=== PATIENT | male | born 1980 | race Two or more races ===

== ENCOUNTER 2021-07-25 23:17 | Inpatient (IN) | payer MEDICARE, MEDICAID ==
[~2021-07-25] VITALS: Ht 182.9 cm; Wt 93.2 kg
[2021-07-26 00:27] LABS: Hematocrit 22.5 % (41.0-53.0); Hemoglobin 7.5 g/dL (13.5-17.5); Lymphocytes # (auto) 0.6 10 ^3/uL (0.4-5.4); Monocytes % (auto) 11.8 % (0.0-12.0); Red Cell Distribution Width 15.5 % (11.8-14.3)
[2021-07-26 00:28] LABS: Basophils # (auto) 0 10 ^3/uL (0-0.2); Basophils % (auto) 0.5 % (0.0-2.0); Eosinophils # (auto) 0.2 10 ^3/uL (0-0.8); Eosinophils % (auto) 1.9 % (0.0-7.0); Lymphocytes % (auto) 7.2 % (10.0-50.0); Mean Corpuscular Hemoglobin 33.1 pg (28.0-32.0); Mean Corpuscular Hgb Conc. 33.1 g/dL (32.0-36.0); Mean Corpuscular Volume 99.9 fL (80.0-100.0); Monocytes # (auto) 0.9 10 ^3/uL (0-1.3); Neutrophils # (auto) 6.3 10 ^3/uL (1.6-8.6); Neutrophils % (auto) 78.6 % (37.0-80.0); Red Blood Cells 2.26 10^6/uL (4.5-5.90)
[2021-07-26 00:43] LABS: INR 1.22 (0.9-1.15)
[2021-07-26 00:44] LABS: BUN/Creatinine Ratio 6.2; Calcium 9.2 mg/dL (8.5-10.1); Magnesium 2.5 mg/dL (1.6-2.6); Potassium 5.1 mmol/L (3.5-5.1)
[2021-07-26 00:49] LABS: Bilirubin, Total 0.8 mg/dL (0.2-1.0); Total Protein 7.9 g/dL (6.4-8.2)
[2021-07-26] MEDS ORDERED: ONDANSETRON HCL 4 MG/2 ML VIAL IV ONE (02:00)
[2021-07-26] MEDS ORDERED: HYDROmorphone HCL 2 MG/ML VL IV ONE (02:00)
[2021-07-26] MEDS ORDERED: NALOXONE HCL 1MG/ML 2ML SYRINGE ONE ×2 (02:10→02:13)
[2021-07-26] MEDS ORDERED: NALOXONE HCL 0.4 MG/ML VIAL ONE ×2 (02:14→02:17)
[2021-07-26] MEDS ORDERED: NALOXONE HCL 1MG/ML 2ML SYRINGE IV ONE (02:15)
[2021-07-26] MEDS ORDERED: ONDANSETRON HCL 4 MG/2 ML VIAL ONE (02:35)
[2021-07-26] MEDS ORDERED: NALOXONE HCL 0.4 MG/ML VIAL IV ONE (03:15)
[2021-07-26] MEDS ORDERED: hydrALAZINE HCL 20 MG/ML VL IV ONE (11:15)
[2021-07-26] MEDS ORDERED: NITROGLYCERIN 0.4 MG SL TAB SL PRN (11:15)
[2021-07-26] MEDS ORDERED: MORPHINE SULFATE INJECTION 2 MG/ML SYRG IV PRN (11:15)
[2021-07-26] MEDS ORDERED: DEXTROSE (50%) 50ML SYRG IV PRN (11:45)
[2021-07-26] MEDS ORDERED: LACTULOSE 20Gm/30ML SOLN PO PRN (11:45)
[2021-07-26] MEDS ORDERED: ONDANSETRON HCL 4 MG/2 ML VIAL IV PRN (11:45)
[2021-07-26 11:53] LABS: Amylase 68 U/L (25-115); Lipase 161 U/L (73-393)
[2021-07-26 12:03] LABS: Hematocrit 22.1 % (41.0-53.0); Hemoglobin 7.5 g/dL (13.5-17.5)
[2021-07-26] MEDS: ONDANSETRON HCL 4 MG/2 ML VIAL IV PRN ×3 (13:09→17:23)
[2021-07-26] MEDS: NALBUPHINE HCL 10 MG/1ml INJECTION IV PRN ×2 (14:52→19:44)
[2021-07-26] MEDS: InsuLIN REG 1unit/0.01ml Soln (100units/ml) SC SCH ×2 (17:00→22:00)
[2021-07-26] MEDS: ACCU-CHEK COMFORT CURVE STRIP VI SCH ×2 (17:15→23:00)
[2021-07-26 19:59] LABS: Hemoglobin 7.6 g/dL (13.5-17.5)
[2021-07-26 20:02] LABS: Hematocrit 22.8 % (41.0-53.0)
[2021-07-26 22:00] VITALS: BP 139/84
[2021-07-26] MEDS: SUCRALFATE 1 GM/10 ML ORAL SUSP PO SCH (22:00)
[2021-07-26 22:54] VITALS: BP 139/84
[2021-07-26] MEDS: ATORVASTATIN 20 MG TAB PO SCH (22:59)
[2021-07-26] MEDS: CARVEDILOL 3.125 MG TAB PO SCH (23:00)
[2021-07-27] MEDS ORDERED: PANT40T PO (01:07)
[2021-07-27] MEDS ORDERED: ASPI-325 PO (01:07)
[2021-07-27] MEDS ORDERED: ALPR0.255 PO (01:07)
[2021-07-27] MEDS ORDERED: LOS25T PO (01:07)
[2021-07-27] MEDS ORDERED: LABE300T3 PO (01:07)
[2021-07-27] MEDS ORDERED: HYDR50TA15 PO (01:07)
[2021-07-27] MEDS ORDERED: SEVE800T8 PO (01:07)
[2021-07-27] MEDS ORDERED: CLON0.1T PO (01:07)
[2021-07-27] MEDS ORDERED: ATO40T PO (01:07)
[2021-07-27] MEDS ORDERED: NIFE1TAB30 PO (01:07)
[2021-07-27] MEDS ORDERED: CLOP75TA70 PO (01:07)
[2021-07-27 01:39] LABS: Hematocrit 21.8 % (41.0-53.0); Hemoglobin 7.4 g/dL (13.5-17.5)
[2021-07-27] MEDS: NALBUPHINE HCL 10 MG/1ml INJECTION IV PRN ×4 (01:39→19:53)
[2021-07-27] MEDS: ONDANSETRON HCL 4 MG/2 ML VIAL IV PRN ×4 (01:39→19:53)
[2021-07-27 05:00] VITALS: BP 120/76
[2021-07-27 05:05] LABS: Lymphocytes # (auto) 0.6 10 ^3/uL (0.4-5.4); Monocytes # (auto) 0.9 10 ^3/uL (0-1.3)
[2021-07-27 05:08] LABS: Basophils # (auto) 0.1 10 ^3/uL (0-0.2); Basophils % (auto) 0.6 % (0.0-2.0); Eosinophils # (auto) 0 10 ^3/uL (0-0.8); Eosinophils % (auto) 0.4 % (0.0-7.0); Hematocrit 23.4 % (41.0-53.0); Hemoglobin 7.8 g/dL (13.5-17.5); Lymphocytes % (auto) 5.9 % (10.0-50.0); Mean Corpuscular Hemoglobin 33.6 pg (28.0-32.0); Mean Corpuscular Hgb Conc. 33.4 g/dL (32.0-36.0); Mean Corpuscular Volume 100.8 fL (80.0-100.0); Monocytes % (auto) 9.4 % (0.0-12.0); Neutrophils # (auto) 8.5 10 ^3/uL (1.6-8.6); Neutrophils % (auto) 83.7 % (37.0-80.0); Red Blood Cells 2.32 10^6/uL (4.5-5.90); Red Cell Distribution Width 15.6 % (11.8-14.3); White Blood Cell 10.1 10^3/uL (4.4-10.8)
[2021-07-27 05:29] LABS: Albumin 2.9 g/dL (3.4-5.0); BUN/Creatinine Ratio 6.9; Calcium 9.4 mg/dL (8.5-10.1)
[2021-07-27 05:40] LABS: Bilirubin, Total 1.3 mg/dL (0.2-1.0); Total Protein 7.6 g/dL (6.4-8.2)
[2021-07-27 06:01] LABS: Potassium 6.5 mmol/L (3.5-5.1)
[2021-07-27] MEDS ORDERED: SODIUM ZIRCONIUM CYCL 10 GM PAK PO ONE (06:30)
[2021-07-27] MEDS ORDERED: SODIUM CHL 0.9% 1000 ML BAG XX ONE (07:00)
[2021-07-27] MEDS: InsuLIN REG 1unit/0.01ml Soln (100units/ml) SC SCH ×4 (07:00→22:00)
[2021-07-27] MEDS: traMADol HCL 50 MG TAB PO PRN (07:05)
[2021-07-27] MEDS: ACCU-CHEK COMFORT CURVE STRIP VI SCH ×4 (07:29→22:00)
[2021-07-27] MEDS: SUCRALFATE 1 GM/10 ML ORAL SUSP PO SCH ×4 (07:29→23:48)
[2021-07-27 09:00] VITALS: BP 159/103
[2021-07-27] MEDS: PANTOPRAZOLE 40 MG TAB PO SCH (09:37)
[2021-07-27] MEDS: ASPirin 81 mg TAB PO SCH (09:37)
[2021-07-27 13:00] VITALS: BP 156/96
[2021-07-27] MEDS: NITROGLYCERIN 0.2MG/HR TOPICAL PATCH TD SCH (15:30)
[2021-07-27] MEDS: CARVEDILOL 3.125 MG TAB PO SCH ×2 (15:30→23:48)
[2021-07-27] MEDS: FUROSEMIDE 40 MG/4 ML VIAL IV SCH (15:30)
[2021-07-27] MEDS: ENALAPRIL MALEATE 10 MG TAB PO SCH (15:30)
[2021-07-27] MEDS: Glucerna Carbsteady SHAKE Vanilla 8oz PO SCH (18:00)
[2021-07-27 19:03] LABS: Hematocrit 21.9 % (41.0-53.0); Hemoglobin 7.3 g/dL (13.5-17.5)
[2021-07-27 20:00] VITALS: BP 126/78
[2021-07-27] MEDS ORDERED: EPOETIN ALFA-EPBX 10,000 UNIT/1ML VIAL SC ONE (21:00)
[2021-07-27 21:54] VITALS: BP 130/64
[2021-07-27] MEDS: ATORVASTATIN 20 MG TAB PO SCH (23:50)
[2021-07-28] MEDS: ONDANSETRON HCL 4 MG/2 ML VIAL IV PRN ×5 (02:07→22:44)
[2021-07-28] MEDS: NALBUPHINE HCL 10 MG/1ml INJECTION IV PRN ×5 (03:07→22:43)
[2021-07-28 05:12] LABS: Basophils # (auto) 0.1 10 ^3/uL (0-0.2); Basophils % (auto) 0.5 % (0.0-2.0); Eosinophils # (auto) 0 10 ^3/uL (0-0.8); Eosinophils % (auto) 0.2 % (0.0-7.0); Hemoglobin 7.2 g/dL (13.5-17.5); Monocytes # (auto) 1.1 10 ^3/uL (0-1.3)
[2021-07-28 05:14] LABS: Hematocrit 21.8 % (41.0-53.0); Lymphocytes # (auto) 0.4 10 ^3/uL (0.4-5.4); Lymphocytes % (auto) 3.9 % (10.0-50.0); Mean Corpuscular Hemoglobin 33.7 pg (28.0-32.0); Mean Corpuscular Hgb Conc. 33.3 g/dL (32.0-36.0); Mean Corpuscular Volume 101.2 fL (80.0-100.0); Monocytes % (auto) 10.2 % (0.0-12.0); Neutrophils # (auto) 9.5 10 ^3/uL (1.6-8.6); Neutrophils % (auto) 85.2 % (37.0-80.0); Nucleated Red Blood Cells % 0.2 %; Red Blood Cells 2.15 10^6/uL (4.5-5.90); Red Cell Distribution Width 15.7 % (11.8-14.3); White Blood Cell 11.1 10^3/uL (4.4-10.8)
[2021-07-28 05:31] LABS: Albumin 2.7 g/dL (3.4-5.0); Calcium 9.3 mg/dL (8.5-10.1)
[2021-07-28 05:34] LABS: BUN/Creatinine Ratio 6.9
[2021-07-28 05:41] VITALS: BP 142/122
[2021-07-28] MEDS: InsuLIN REG 1unit/0.01ml Soln (100units/ml) SC SCH ×4 (05:45→21:40)
[2021-07-28 05:46] LABS: Bilirubin, Total 1.5 mg/dL (0.2-1.0); Total Protein 7.3 g/dL (6.4-8.2)
[2021-07-28] MEDS: ACCU-CHEK COMFORT CURVE STRIP VI SCH ×4 (05:46→21:40)
[2021-07-28 05:50] LABS: Potassium 5.8 mmol/L (3.5-5.1)
[2021-07-28] MEDS: SUCRALFATE 1 GM/10 ML ORAL SUSP PO SCH ×4 (05:50→21:39)
[2021-07-28] MEDS: Glucerna Carbsteady SHAKE Vanilla 8oz PO SCH ×3 (08:00→18:00)
[2021-07-28 09:00] VITALS: BP 168/98
[2021-07-28 09:55] LABS: Cholesterol 98 mg/dL (< 200); HDL Cholesterol 25 mg/dL (40-59); LDL Cholesterol 35 mg/dL (< 100); Triglycerides 183 mg/dL (< 150)
[2021-07-28] MEDS: FUROSEMIDE 40 MG/4 ML VIAL IV SCH (10:00)
[2021-07-28] MEDS: ENALAPRIL MALEATE 10 MG TAB PO SCH (10:00)
[2021-07-28] MEDS: ASPirin 81 mg TAB PO SCH (10:00)
[2021-07-28] MEDS: NITROGLYCERIN 0.2MG/HR TOPICAL PATCH TD SCH (10:00)
[2021-07-28] MEDS: PANTOPRAZOLE 40 MG TAB PO SCH (10:00)
[2021-07-28] MEDS ORDERED: SODIUM ZIRCONIUM CYCL 10 GM PAK PO ONE (11:15)
[2021-07-28 13:00] VITALS: BP 186/93
[2021-07-28] MEDS: CLOPIDOGREL BISULFATE 75 MG TAB PO SCH (13:45)
[2021-07-28] MEDS: CARVEDILOL 12.5 MG TAB PO SCH ×2 (13:45→21:39)
[2021-07-28] MEDS: NICOTINE 14 MG/24HR TOPICAL PATCH TD SCH (13:45)
[2021-07-28] MEDS ORDERED: CEFEPIME 1 GM in SODIUM CHL 0.9% 50 ML IV SCH (14:00)
[2021-07-28 14:06] LABS: Folate (Folic Acid) 17.47 ng/mL (5.38-24)
[2021-07-28 17:00] VITALS: BP 139/84
[2021-07-28 17:43] LABS: % Iron Saturation 85.7 % (20-55)
[2021-07-28 22:07] VITALS: BP 157/88
[2021-07-29] MEDS: ONDANSETRON HCL 4 MG/2 ML VIAL IV PRN ×4 (02:55→15:16)
[2021-07-29] MEDS: NALBUPHINE HCL 10 MG/1ml INJECTION IV PRN ×4 (02:55→15:16)
[2021-07-29 05:20] VITALS: BP 153/81
[2021-07-29 05:31] LABS: Basophils # (auto) 0 10 ^3/uL (0-0.2); Eosinophils # (auto) 0.1 10 ^3/uL (0-0.8); Hemoglobin 7.3 g/dL (13.5-17.5); Nucleated Red Blood Cells % 0.4 %; Red Cell Distribution Width 15.5 % (11.8-14.3); White Blood Cell 11.3 10^3/uL (4.4-10.8)
[2021-07-29 05:50] LABS: Basophils % (auto) 0.3 % (0.0-2.0); Eosinophils % (auto) 0.6 % (0.0-7.0); Hematocrit 22.1 % (41.0-53.0); Lymphocytes # (auto) 0.6 10 ^3/uL (0.4-5.4); Lymphocytes % (auto) 5.1 % (10.0-50.0); Mean Corpuscular Hemoglobin 33.2 pg (28.0-32.0); Mean Corpuscular Hgb Conc. 32.9 g/dL (32.0-36.0); Mean Corpuscular Volume 100.9 fL (80.0-100.0); Monocytes # (auto) 1.3 10 ^3/uL (0-1.3); Monocytes % (auto) 11.9 % (0.0-12.0); Neutrophils # (auto) 9.3 10 ^3/uL (1.6-8.6); Neutrophils % (auto) 82.1 % (37.0-80.0)
[2021-07-29 05:52] LABS: INR 1.52 (0.9-1.15); Partial Thromboplastin Time 32.5 sec (23.6-33.0)
[2021-07-29 06:09] LABS: Albumin 2.7 g/dL (3.4-5.0); BUN/Creatinine Ratio 7.1; Bilirubin, Total 1.2 mg/dL (0.2-1.0); Calcium 9.4 mg/dL (8.5-10.1)
[2021-07-29] MEDS: SUCRALFATE 1 GM/10 ML ORAL SUSP PO SCH ×4 (06:28→21:38)
[2021-07-29] MEDS: InsuLIN REG 1unit/0.01ml Soln (100units/ml) SC SCH ×4 (06:50→21:39)
[2021-07-29] MEDS: ACCU-CHEK COMFORT CURVE STRIP VI SCH ×4 (06:50→21:39)
[2021-07-29] MEDS ORDERED: SODIUM CHL 0.9% 1000 ML BAG XX ONE (07:00)
[2021-07-29] MEDS: Glucerna Carbsteady SHAKE Vanilla 8oz PO SCH ×3 (08:00→17:40)
[2021-07-29 09:00] VITALS: BP 149/84
[2021-07-29] MEDS: NICOTINE 14 MG/24HR TOPICAL PATCH TD SCH (10:00)
[2021-07-29] MEDS: ASPirin 81 mg TAB PO SCH (10:00)
[2021-07-29] MEDS: ENOXAPARIN SOD 30 MG/0.3 ML SYRINGE SC SCH (10:00)
[2021-07-29] MEDS: FUROSEMIDE 40 MG/4 ML VIAL IV SCH (10:00)
[2021-07-29] MEDS: PANTOPRAZOLE 40 MG TAB PO SCH (10:00)
[2021-07-29] MEDS: CARVEDILOL 12.5 MG TAB PO SCH ×2 (10:00→21:39)
[2021-07-29] MEDS: CLOPIDOGREL BISULFATE 75 MG TAB PO SCH (10:00)
[2021-07-29] MEDS: NITROGLYCERIN 0.2MG/HR TOPICAL PATCH TD SCH (10:00)
[2021-07-29] MEDS: hydrALAZINE HCL 20 MG/ML VL IV PRN (10:58)
[2021-07-29] MEDS: PIPERACILLIN-TAZOB 3.375GM 100 ML IV SCH ×2 (12:00→17:39)
[2021-07-29] MEDS ORDERED: MIDAZOLAM HCL 2MG/2ML 2ml VIAL (1mg/ml) ONE (12:32)
[2021-07-29] MEDS ORDERED: LIDOCAINE 2%HCL (LOCAL ANESTH.) INJ 20ML MDV ONE (12:32)
[2021-07-29] MEDS ORDERED: ANGIOMAX 250 MG VIAL IV ONE (12:32)
[2021-07-29] MEDS ORDERED: SODIUM CHL 0.9% 50 ML ONE (12:32)
[2021-07-29] MEDS ORDERED: fentaNYL CITRATE 100 MCG/2 ML VL ONE (12:32)
[2021-07-29] MEDS ORDERED: IODIXANOL 320MG/ML 100ML BTL IV ONE ×2 (12:33→13:15)
[2021-07-29] MEDS ORDERED: hydrALAZINE HCL 20 MG/ML VL ONE (13:06)
[2021-07-29 17:00] VITALS: BP 148/70
[2021-07-29] MEDS: PROMETHAZINE HCL 25 MG/ML 1ML IV PRN (18:34)
[2021-07-29] MEDS: MORPHINE SULFATE INJECTION 2 MG/ML SYRG IV PRN ×2 (18:34→22:27)
[2021-07-29] MEDS ORDERED: EPOETIN ALFA-EPBX 4,000 UNIT/ML VIAL SC ONE (21:00)
[2021-07-29 22:17] VITALS: BP 158/84
[2021-07-30] MEDS: PROMETHAZINE HCL 25 MG/ML 1ML IV PRN ×4 (00:35→22:03)
[2021-07-30] MEDS: PIPERACILLIN-TAZOB 3.375GM 100 ML IV SCH ×2 (00:35→06:16)
[2021-07-30] MEDS: MORPHINE SULFATE INJECTION 2 MG/ML SYRG IV PRN ×3 (03:44→20:28)
[2021-07-30 05:00] VITALS: BP 145/94
[2021-07-30] MEDS: SUCRALFATE 1 GM/10 ML ORAL SUSP PO SCH ×4 (06:16→21:22)
[2021-07-30] MEDS: InsuLIN REG 1unit/0.01ml Soln (100units/ml) SC SCH ×4 (06:17→21:22)
[2021-07-30] MEDS: ACCU-CHEK COMFORT CURVE STRIP VI SCH ×4 (06:17→21:22)
[2021-07-30] MEDS: Glucerna Carbsteady SHAKE Vanilla 8oz PO SCH ×3 (07:34→17:13)
[2021-07-30 09:00] VITALS: BP 151/72
[2021-07-30] MEDS: FUROSEMIDE 40 MG/4 ML VIAL IV SCH (09:07)
[2021-07-30] MEDS: PANTOPRAZOLE 40 MG TAB PO SCH ×2 (09:08→12:22)
[2021-07-30] MEDS: ASPirin 81 mg TAB PO SCH ×2 (09:08→12:22)
[2021-07-30] MEDS: CLOPIDOGREL BISULFATE 75 MG TAB PO SCH ×2 (09:08→12:23)
[2021-07-30] MEDS: ENALAPRIL MALEATE 10 MG TAB PO SCH ×2 (09:09→12:21)
[2021-07-30] MEDS: NITROGLYCERIN 0.2MG/HR TOPICAL PATCH TD SCH ×2 (09:09→12:21)
[2021-07-30] MEDS: ENOXAPARIN SOD 30 MG/0.3 ML SYRINGE SC SCH (09:09)
[2021-07-30] MEDS: NICOTINE 14 MG/24HR TOPICAL PATCH TD SCH (09:09)
[2021-07-30] MEDS: CARVEDILOL 12.5 MG TAB PO SCH ×3 (09:19→21:23)
[2021-07-30 10:42] LABS: % Iron Saturation 36.6 % (20-55)
[2021-07-30 11:22] LABS: Ferritin 101.9 ng/mL (10-322)
[2021-07-30 13:00] VITALS: BP 189/99
[2021-07-30] MEDS: PIPERACILLIN-TAZOB 2.25GM 50 ML IV SCH ×2 (13:18→21:22)
[2021-07-30] MEDS: hydrALAZINE HCL 20 MG/ML VL IV PRN (13:48)
[2021-07-30] MEDS ORDERED: ceFAZolin 1GM/50ML 100 ML IV ONE (16:18)
[2021-07-30] MEDS ORDERED: fentaNYL CITRATE 100 MCG/2 ML VL ONE (17:16)
[2021-07-30] MEDS ORDERED: PROPOFOL 10 MG/ML 20 ML IV ONE (17:16)
[2021-07-30] MEDS ORDERED: MIDAZOLAM HCL 2MG/2ML 2ml VIAL (1mg/ml) ONE ×2 (17:16→18:49)
[2021-07-30] MEDS ORDERED: ONDANSETRON HCL 4 MG/2 ML VIAL ONE (17:16)
[2021-07-30] MEDS ORDERED: SODIUM CHLORIDE LOCK 10 ML ONE (17:16)
[2021-07-30] MEDS ORDERED: ceFAZolin 1GM VL ONE (18:12)
[2021-07-30] MEDS ORDERED: BUPIVACAINE 0.25% INJ 50ML VIAL ONE (18:20)
[2021-07-30] MEDS ORDERED: METOCLOPRAMIDE HCL 5MG/ml INJ 2ml VIAL IV PRN (19:00)
[2021-07-30] MEDS ORDERED: HYDROmorphone HCL 2 MG/ML VL IV PRN (19:00)
[2021-07-30] MEDS ORDERED: MORPHINE SULFATE 4 MG/ML SYR/VIAL IV PRN (19:00)
[2021-07-30] MEDS ORDERED: ACCU-CHEK COMFORT CURVE STRIP VI ONE (19:00)
[2021-07-30 22:00] VITALS: BP 100/62
[2021-07-31] MEDS: MORPHINE SULFATE INJECTION 2 MG/ML SYRG IV PRN ×3 (03:11→20:09)
[2021-07-31 05:00] VITALS: BP 142/77
[2021-07-31 06:15] LABS: Basophils # (auto) 0.1 10 ^3/uL (0-0.2); Eosinophils % (auto) 1.4 % (0.0-7.0); Hemoglobin 7.5 g/dL (13.5-17.5); Lymphocytes # (auto) 0.8 10 ^3/uL (0.4-5.4); Monocytes # (auto) 1.5 10 ^3/uL (0-1.3)
[2021-07-31 06:18] LABS: Basophils % (auto) 0.8 % (0.0-2.0); Eosinophils # (auto) 0.1 10 ^3/uL (0-0.8); Hematocrit 22.1 % (41.0-53.0); Lymphocytes % (auto) 7.3 % (10.0-50.0); Mean Corpuscular Hemoglobin 34.4 pg (28.0-32.0); Mean Corpuscular Hgb Conc. 33.8 g/dL (32.0-36.0); Mean Corpuscular Volume 101.9 fL (80.0-100.0); Monocytes % (auto) 14.7 % (0.0-12.0); Neutrophils % (auto) 75.8 % (37.0-80.0); Nucleated Red Blood Cells % 0.5 %; Red Blood Cells 2.17 10^6/uL (4.5-5.90); Red Cell Distribution Width 15.4 % (11.8-14.3); White Blood Cell 10.5 10^3/uL (4.4-10.8)
[2021-07-31 06:29] LABS: Potassium 4.8 mmol/L (3.5-5.1)
[2021-07-31] MEDS: InsuLIN REG 1unit/0.01ml Soln (100units/ml) SC SCH ×4 (06:30→22:56)
[2021-07-31] MEDS: PIPERACILLIN-TAZOB 2.25GM 50 ML IV SCH ×3 (06:30→22:47)
[2021-07-31] MEDS: SUCRALFATE 1 GM/10 ML ORAL SUSP PO SCH ×4 (06:30→22:48)
[2021-07-31] MEDS: ACCU-CHEK COMFORT CURVE STRIP VI SCH ×4 (06:30→22:48)
[2021-07-31 06:47] LABS: BUN/Creatinine Ratio 6.8; Calcium 9.6 mg/dL (8.5-10.1)
[2021-07-31 09:30] VITALS: BP 128/79
[2021-07-31] MEDS: FUROSEMIDE 40 MG/4 ML VIAL IV SCH (09:44)
[2021-07-31] MEDS: CARVEDILOL 12.5 MG TAB PO SCH ×2 (09:45→22:48)
[2021-07-31] MEDS: ASPirin 81 mg TAB PO SCH (09:45)
[2021-07-31] MEDS: PANTOPRAZOLE 40 MG TAB PO SCH (09:46)
[2021-07-31] MEDS: CLOPIDOGREL BISULFATE 75 MG TAB PO SCH (09:46)
[2021-07-31] MEDS: ENALAPRIL MALEATE 10 MG TAB PO SCH (09:47)
[2021-07-31] MEDS: ENOXAPARIN SOD 30 MG/0.3 ML SYRINGE SC SCH (09:47)
[2021-07-31] MEDS: NITROGLYCERIN 0.2MG/HR TOPICAL PATCH TD SCH (09:48)
[2021-07-31] MEDS: Glucerna Carbsteady SHAKE Vanilla 8oz PO SCH ×3 (09:48→18:12)
[2021-07-31] MEDS: NICOTINE 14 MG/24HR TOPICAL PATCH TD SCH (09:49)
[2021-07-31] MEDS ORDERED: VANCOMYCIN PER PHARMACY 0 MG IV SCH (12:15)
[2021-07-31 12:53] VITALS: BP 155/82
[2021-07-31] MEDS: PROMETHAZINE HCL 25 MG/ML 1ML IV PRN ×2 (14:32→20:10)
[2021-07-31 16:43] VITALS: BP 167/95
[2021-07-31] MEDS ORDERED: VANCOMYCIN 1GM/250ML 250 ML IV ONE (17:00)
[2021-07-31] MEDS: hydrALAZINE HCL 20 MG/ML VL IV PRN (17:25)
[2021-07-31] MEDS ORDERED: LIDOCAINE 1% (LOCAL ANESTH.) PF 5ml SDV ID ONE (17:45)
[2021-07-31 22:00] VITALS: BP 127/87
[2021-07-31] MEDS: SODIUM CHLOR 0.9% PF (SALINE LOCK) 10ML VIAL/SYR IV SCH (22:39)
[2021-08-01] MEDS: PROMETHAZINE HCL 25 MG/ML 1ML IV PRN ×2 (02:01→14:51)
[2021-08-01] MEDS: MORPHINE SULFATE INJECTION 2 MG/ML SYRG IV PRN ×2 (02:01→14:45)
[2021-08-01 05:00] VITALS: BP 120/86
[2021-08-01] MEDS: PIPERACILLIN-TAZOB 2.25GM 50 ML IV SCH ×3 (06:19→22:46)
[2021-08-01] MEDS: SUCRALFATE 1 GM/10 ML ORAL SUSP PO SCH ×4 (06:19→22:46)
[2021-08-01] MEDS: ACCU-CHEK COMFORT CURVE STRIP VI SCH ×4 (06:19→22:47)
[2021-08-01] MEDS: InsuLIN REG 1unit/0.01ml Soln (100units/ml) SC SCH ×4 (06:19→22:47)
[2021-08-01] MEDS ORDERED: SODIUM CHL 0.9% 1000 ML BAG XX ONE (07:00)
[2021-08-01] MEDS: Glucerna Carbsteady SHAKE Vanilla 8oz PO SCH ×5 (08:00→18:00)
[2021-08-01 09:00] VITALS: BP 152/53
[2021-08-01] MEDS: SODIUM CHLOR 0.9% PF (SALINE LOCK) 10ML VIAL/SYR IV SCH ×2 (10:00→22:02)
[2021-08-01] MEDS: PANTOPRAZOLE 40 MG TAB PO SCH (11:30)
[2021-08-01] MEDS: NICOTINE 14 MG/24HR TOPICAL PATCH TD SCH (11:30)
[2021-08-01] MEDS: FUROSEMIDE 40 MG/4 ML VIAL IV SCH (11:30)
[2021-08-01] MEDS: ENOXAPARIN SOD 30 MG/0.3 ML SYRINGE SC SCH (11:30)
[2021-08-01] MEDS: CLOPIDOGREL BISULFATE 75 MG TAB PO SCH (11:30)
[2021-08-01] MEDS: CARVEDILOL 12.5 MG TAB PO SCH ×2 (11:30→22:47)
[2021-08-01] MEDS: NITROGLYCERIN 0.2MG/HR TOPICAL PATCH TD SCH (11:30)
[2021-08-01] MEDS: ENALAPRIL MALEATE 10 MG TAB PO SCH (11:30)
[2021-08-01] MEDS: ASPirin 81 mg TAB PO SCH (11:30)
[2021-08-01] MEDS: traMADol HCL 50 MG TAB PO PRN (12:45)
[2021-08-01 13:00] VITALS: BP 144/113
[2021-08-01 16:48] VITALS: BP 140/38
[2021-08-01] MEDS ORDERED: EPOETIN ALFA-EPBX 4,000 UNIT/ML VIAL SC ONE (21:00)
[2021-08-01] MEDS ORDERED: VANCOMYCIN 500 MG in D5W 5% 100 ML IV ONE (21:00)
[2021-08-01 22:12] VITALS: BP 177/58
[2021-08-02] MEDS: PROMETHAZINE HCL 25 MG/ML 1ML IV PRN ×2 (05:00→21:37)
[2021-08-02] MEDS: MORPHINE SULFATE INJECTION 2 MG/ML SYRG IV PRN ×2 (05:01→21:37)
[2021-08-02 05:08] VITALS: BP 146/108
[2021-08-02 05:35] LABS: Basophils # (auto) 0.1 10 ^3/uL (0-0.2); Basophils % (auto) 1.3 % (0.0-2.0); Eosinophils # (auto) 0.4 10 ^3/uL (0-0.8); Eosinophils % (auto) 4.9 % (0.0-7.0); Hematocrit 21.9 % (41.0-53.0); Hemoglobin 7.3 g/dL (13.5-17.5); Lymphocytes # (auto) 0.6 10 ^3/uL (0.4-5.4); Lymphocytes % (auto) 8.1 % (10.0-50.0); Mean Corpuscular Hemoglobin 34.6 pg (28.0-32.0); Mean Corpuscular Hgb Conc. 33.5 g/dL (32.0-36.0); Mean Corpuscular Volume 103.3 fL (80.0-100.0); Monocytes # (auto) 0.8 10 ^3/uL (0-1.3); Monocytes % (auto) 10.7 % (0.0-12.0); Neutrophils # (auto) 5.8 10 ^3/uL (1.6-8.6); Nucleated Red Blood Cells % 0.2 %; Red Blood Cells 2.12 10^6/uL (4.5-5.90); White Blood Cell 7.7 10^3/uL (4.4-10.8)
[2021-08-02 05:56] LABS: Albumin 2.4 g/dL (3.4-5.0); BUN/Creatinine Ratio 6.7; Bilirubin, Total 0.8 mg/dL (0.2-1.0); Calcium 9.7 mg/dL (8.5-10.1); Total Protein 7.2 g/dL (6.4-8.2)
[2021-08-02] MEDS: PIPERACILLIN-TAZOB 2.25GM 50 ML IV SCH ×3 (06:14→21:36)
[2021-08-02] MEDS: InsuLIN REG 1unit/0.01ml Soln (100units/ml) SC SCH ×4 (06:14→21:59)
[2021-08-02] MEDS: ACCU-CHEK COMFORT CURVE STRIP VI SCH ×4 (06:14→21:36)
[2021-08-02] MEDS: SUCRALFATE 1 GM/10 ML ORAL SUSP PO SCH ×4 (06:14→21:35)
[2021-08-02] MEDS: Glucerna Carbsteady SHAKE Vanilla 8oz PO SCH ×6 (08:00→18:00)
[2021-08-02 09:00] VITALS: BP 130/57
[2021-08-02] MEDS: NICOTINE 14 MG/24HR TOPICAL PATCH TD SCH (10:00)
[2021-08-02] MEDS: SODIUM CHLOR 0.9% PF (SALINE LOCK) 10ML VIAL/SYR IV SCH ×2 (10:00→21:35)
[2021-08-02 13:00] VITALS: BP 166/68
[2021-08-02] MEDS: FUROSEMIDE 40 MG/4 ML VIAL IV SCH (14:00)
[2021-08-02] MEDS: ASPirin 81 mg TAB PO SCH (15:00)
[2021-08-02] MEDS: NITROGLYCERIN 0.2MG/HR TOPICAL PATCH TD SCH (15:00)
[2021-08-02] MEDS: PANTOPRAZOLE 40 MG TAB PO SCH (15:00)
[2021-08-02] MEDS: ENALAPRIL MALEATE 10 MG TAB PO SCH (15:00)
[2021-08-02] MEDS: CARVEDILOL 12.5 MG TAB PO SCH ×2 (15:00→21:36)
[2021-08-02] MEDS: ENOXAPARIN SOD 30 MG/0.3 ML SYRINGE SC SCH (15:00)
[2021-08-02] MEDS: CLOPIDOGREL BISULFATE 75 MG TAB PO SCH (15:00)
[2021-08-02 17:00] VITALS: BP 157/75
[2021-08-02] MEDS: DICYCLOMINE HCL 10 MG CAP PO PRN (19:15)
[2021-08-02 22:00] VITALS: BP 160/43
[2021-08-03] VITALS (12 sets, daily range): BP systolic 109–186; BP diastolic 32–79
[2021-08-03] MEDS: MORPHINE SULFATE INJECTION 2 MG/ML SYRG IV PRN ×4 (02:07→19:37)
[2021-08-03 05:38] LABS: INR 1.24 (0.9-1.15); Partial Thromboplastin Time 32.4 sec (23.6-33.0)
[2021-08-03 05:40] LABS: Basophils # (auto) 0.1 10 ^3/uL (0-0.2); Basophils % (auto) 0.8 % (0.0-2.0); Hematocrit 19.7 % (41.0-53.0); Lymphocytes # (auto) 0.9 10 ^3/uL (0.4-5.4); Monocytes # (auto) 1.2 10 ^3/uL (0-1.3); Neutrophils # (auto) 6.2 10 ^3/uL (1.6-8.6); Nucleated Red Blood Cells % 0.2 %; White Blood Cell 8.8 10^3/uL (4.4-10.8)
[2021-08-03 05:44] LABS: Eosinophils # (auto) 0.5 10 ^3/uL (0-0.8); Eosinophils % (auto) 5.4 % (0.0-7.0); Lymphocytes % (auto) 9.8 % (10.0-50.0); Mean Corpuscular Hemoglobin 35.2 pg (28.0-32.0); Mean Corpuscular Volume 103.4 fL (80.0-100.0); Monocytes % (auto) 13.3 % (0.0-12.0); Neutrophils % (auto) 70.7 % (37.0-80.0); Red Cell Distribution Width 16.3 % (11.8-14.3)
[2021-08-03 05:51] LABS: Calcium 9.5 mg/dL (8.5-10.1); Potassium 4.4 mmol/L (3.5-5.1)
[2021-08-03] MEDS: PIPERACILLIN-TAZOB 2.25GM 50 ML IV SCH ×3 (05:51→21:21)
[2021-08-03] MEDS: ACCU-CHEK COMFORT CURVE STRIP VI SCH ×4 (05:52→21:26)
[2021-08-03] MEDS: SUCRALFATE 1 GM/10 ML ORAL SUSP PO SCH ×4 (05:52→21:31)
[2021-08-03] MEDS: InsuLIN REG 1unit/0.01ml Soln (100units/ml) SC SCH ×4 (05:52→21:26)
[2021-08-03 05:55] LABS: BUN/Creatinine Ratio 6.8
[2021-08-03 06:02] LABS: Hemoglobin 6.7 g/dL (13.5-17.5)
[2021-08-03] MEDS: Glucerna Carbsteady SHAKE Vanilla 8oz PO SCH ×4 (07:58→17:43)
[2021-08-03] MEDS ORDERED: LIDOCAINE 2%HCL (LOCAL ANESTH.) INJ 20ML MDV ONE (08:35)
[2021-08-03] MEDS ORDERED: SODIUM CHL 0.9% 50 ML ONE (09:13)
[2021-08-03] MEDS ORDERED: MIDAZOLAM HCL 2MG/2ML 2ml VIAL (1mg/ml) ONE (09:13)
[2021-08-03] MEDS ORDERED: ANGIOMAX 250 MG VIAL IV ONE (09:13)
[2021-08-03] MEDS ORDERED: fentaNYL CITRATE 100 MCG/2 ML VL ONE (09:13)
[2021-08-03] MEDS ORDERED: HYDROmorphone HCL 2 MG/ML VL ONE (09:35)
[2021-08-03] MEDS: ENOXAPARIN SOD 30 MG/0.3 ML SYRINGE SC SCH (10:00)
[2021-08-03] MEDS: PANTOPRAZOLE 40 MG TAB PO SCH (10:00)
[2021-08-03] MEDS: NICOTINE 14 MG/24HR TOPICAL PATCH TD SCH (10:00)
[2021-08-03] MEDS: CARVEDILOL 12.5 MG TAB PO SCH ×2 (10:00→21:31)
[2021-08-03] MEDS: CLOPIDOGREL BISULFATE 75 MG TAB PO SCH (10:00)
[2021-08-03] MEDS: FUROSEMIDE 40 MG/4 ML VIAL IV SCH (10:00)
[2021-08-03] MEDS: NITROGLYCERIN 0.2MG/HR TOPICAL PATCH TD SCH (10:00)
[2021-08-03] MEDS: ASPirin 81 mg TAB PO SCH (10:00)
[2021-08-03] MEDS: ENALAPRIL MALEATE 10 MG TAB PO SCH (10:00)
[2021-08-03] MEDS ORDERED: IODIXANOL 320MG/ML 100ML BTL IV ONE ×2 (10:08)
[2021-08-03] MEDS ORDERED: hydrALAZINE HCL 20 MG/ML VL ONE (10:43)
[2021-08-03] MEDS ORDERED: CLOPIDOGREL BISULFATE 75 MG TAB ONE (10:48)
[2021-08-03] MEDS ORDERED: ASPirin 81 mg TAB ONE (10:49)
[2021-08-03] MEDS: SODIUM CHLOR 0.9% PF (SALINE LOCK) 10ML VIAL/SYR IV SCH ×2 (14:00→21:26)
[2021-08-03] MEDS: DICYCLOMINE HCL 10 MG CAP PO PRN (15:49)
[2021-08-03] MEDS: DIPHENOXYLATE W/ATROPINE 2.5 MG TAB PO PRN (15:49)
[2021-08-03] MEDS: PROMETHAZINE HCL 25 MG/ML 1ML IV PRN ×2 (17:43→19:37)
[2021-08-03] MEDS ORDERED: VANCOMYCIN 1GM/250ML 250 ML IV SCH (18:00)
[2021-08-04] MEDS: MORPHINE SULFATE INJECTION 2 MG/ML SYRG IV PRN ×6 (00:14→22:34)
[2021-08-04] MEDS: DIPHENOXYLATE W/ATROPINE 2.5 MG TAB PO PRN ×2 (00:14→08:01)
[2021-08-04] MEDS: PROMETHAZINE HCL 25 MG/ML 1ML IV PRN ×3 (04:23→21:24)
[2021-08-04 05:00] VITALS: BP 139/81
[2021-08-04] MEDS: PIPERACILLIN-TAZOB 2.25GM 50 ML IV SCH ×3 (06:00→22:32)
[2021-08-04 06:12] LABS: Basophils # (auto) 0.1 10 ^3/uL (0-0.2); Eosinophils # (auto) 0.5 10 ^3/uL (0-0.8); Lymphocytes # (auto) 0.9 10 ^3/uL (0.4-5.4); Monocytes # (auto) 1.1 10 ^3/uL (0-1.3); Nucleated Red Blood Cells % 0.1 %
[2021-08-04 06:14] LABS: Basophils % (auto) 0.7 % (0.0-2.0); Eosinophils % (auto) 6.1 % (0.0-7.0); Hematocrit 22.2 % (41.0-53.0); Hemoglobin 7.8 g/dL (13.5-17.5); Lymphocytes % (auto) 10.3 % (10.0-50.0); Mean Corpuscular Hemoglobin 34.6 pg (28.0-32.0); Mean Corpuscular Volume 98.8 fL (80.0-100.0); Monocytes % (auto) 12.8 % (0.0-12.0); Neutrophils # (auto) 5.9 10 ^3/uL (1.6-8.6); Neutrophils % (auto) 70.1 % (37.0-80.0); Red Blood Cells 2.25 10^6/uL (4.5-5.90); Red Cell Distribution Width 16.3 % (11.8-14.3); White Blood Cell 8.4 10^3/uL (4.4-10.8)
[2021-08-04] MEDS: SODIUM CHLOR 0.9% PF (SALINE LOCK) 10ML VIAL/SYR IV SCH ×3 (06:27→22:33)
[2021-08-04] MEDS: ACCU-CHEK COMFORT CURVE STRIP VI SCH ×4 (06:28→21:25)
[2021-08-04] MEDS: SUCRALFATE 1 GM/10 ML ORAL SUSP PO SCH ×4 (06:28→22:33)
[2021-08-04] MEDS: InsuLIN REG 1unit/0.01ml Soln (100units/ml) SC SCH ×4 (06:49→21:24)
[2021-08-04] MEDS ORDERED: SODIUM CHL 0.9% 1000 ML BAG XX ONE (07:00)
[2021-08-04] MEDS: Glucerna Carbsteady SHAKE Vanilla 8oz PO SCH ×3 (08:37→17:57)
[2021-08-04 09:00] VITALS: BP 165/50
[2021-08-04] MEDS: NICOTINE 14 MG/24HR TOPICAL PATCH TD SCH (10:00)
[2021-08-04] MEDS: CLOPIDOGREL BISULFATE 75 MG TAB PO SCH (12:05)
[2021-08-04] MEDS: CARVEDILOL 12.5 MG TAB PO SCH ×2 (12:07→22:33)
[2021-08-04] MEDS: ASPirin 81 mg TAB PO SCH (12:08)
[2021-08-04] MEDS: PANTOPRAZOLE 40 MG TAB PO SCH (12:09)
[2021-08-04] MEDS: ENALAPRIL MALEATE 10 MG TAB PO SCH (12:09)
[2021-08-04] MEDS: ENOXAPARIN SOD 30 MG/0.3 ML SYRINGE SC SCH (12:09)
[2021-08-04] MEDS: FUROSEMIDE 40 MG/4 ML VIAL IV SCH (12:10)
[2021-08-04] MEDS: NITROGLYCERIN 0.2MG/HR TOPICAL PATCH TD SCH (12:11)
[2021-08-04 13:00] VITALS: BP 188/52
[2021-08-04] MEDS ORDERED: VANCOMYCIN 1GM/250ML 250 ML IV ONE (16:00)
[2021-08-04 16:31] VITALS: BP 190/76
[2021-08-04] MEDS: hydrALAZINE HCL 20 MG/ML VL IV PRN (16:51)
[2021-08-04 17:53] VITALS: BP 145/53
[2021-08-04] MEDS ORDERED: EPOETIN ALFA-EPBX 10,000 UNIT/1ML VIAL SC ONE (21:00)
[2021-08-04 22:00] VITALS: BP 128/113
[2021-08-05] MEDS: MORPHINE SULFATE INJECTION 2 MG/ML SYRG IV PRN ×2 (04:29→10:49)
[2021-08-05] MEDS: PROMETHAZINE HCL 25 MG/ML 1ML IV PRN (04:29)
[2021-08-05] MEDS: DIPHENOXYLATE W/ATROPINE 2.5 MG TAB PO PRN ×2 (04:30→10:49)
[2021-08-05] MEDS: SODIUM CHLOR 0.9% PF (SALINE LOCK) 10ML VIAL/SYR IV SCH ×2 (06:34→13:08)
[2021-08-05] MEDS: PIPERACILLIN-TAZOB 2.25GM 50 ML IV SCH ×2 (06:34→13:08)
[2021-08-05] MEDS: SUCRALFATE 1 GM/10 ML ORAL SUSP PO SCH ×2 (06:34→11:53)
[2021-08-05] MEDS: InsuLIN REG 1unit/0.01ml Soln (100units/ml) SC SCH ×2 (06:35→11:56)
[2021-08-05] MEDS: ACCU-CHEK COMFORT CURVE STRIP VI SCH ×2 (06:35→11:53)
[2021-08-05] MEDS: Glucerna Carbsteady SHAKE Vanilla 8oz PO SCH ×2 (08:00→12:17)
[2021-08-05 09:00] VITALS: BP 152/71
[2021-08-05] MEDS: FUROSEMIDE 40 MG/4 ML VIAL IV SCH (10:08)
[2021-08-05] MEDS: ASPirin 81 mg TAB PO SCH (10:10)
[2021-08-05] MEDS: CARVEDILOL 12.5 MG TAB PO SCH (10:12)
[2021-08-05] MEDS: CLOPIDOGREL BISULFATE 75 MG TAB PO SCH (10:13)
[2021-08-05] MEDS: PANTOPRAZOLE 40 MG TAB PO SCH (10:14)
[2021-08-05] MEDS: ENALAPRIL MALEATE 10 MG TAB PO SCH (10:15)
[2021-08-05] MEDS: ENOXAPARIN SOD 30 MG/0.3 ML SYRINGE SC SCH (10:16)
[2021-08-05] MEDS: NITROGLYCERIN 0.2MG/HR TOPICAL PATCH TD SCH (10:26)
[2021-08-05 13:00] VITALS: BP 130/40
[2021-08-06 13:16] LABS: Hepatitis A Ab IgM Negative
[2021-08-06 13:30] LABS: Hepatitis B Surface Antigen Negative (Negative)
[2021-08-06 13:40] LABS: Hepatitis B Core IgM Negative
[2021-08-06 13:59] LABS: Hepatitis C Antibody Negative (Negative)
== END 2021-08-05 17:15 | DRG 246 ==
LOC: EDUNIT# 23:17 → EDBD 23:17 → ER 23:17 → TELE 07-26 11:14 → TELE-WESTW 07-26 20:39
PROVIDERS: ADMIT Internal Medicine; ATTEND Internal Medicine
PROC: 5A1D70Z Performance of Urinary Filtration, Intermittent, Less than 6 Hours Per Day (ICD-10-PCS; principal; 2021-07-27)
PROC: 4A023N7 Measurement of Cardiac Sampling and Pressure, Left Heart, Percutaneous Approach (ICD-10-PCS; 2021-07-29)
PROC: B211YZZ Fluoroscopy of Multiple Coronary Arteries using Other Contrast (ICD-10-PCS; 2021-07-29)
PROC: B215YZZ Fluoroscopy of Left Heart using Other Contrast (ICD-10-PCS; 2021-07-29)
PROC: B41FYZZ Fluoroscopy of Right Lower Extremity Arteries using Other Contrast (ICD-10-PCS; 2021-07-29)
PROC: 5A1D70Z Performance of Urinary Filtration, Intermittent, Less than 6 Hours Per Day (ICD-10-PCS; 2021-07-30)
PROC: 0QBN0ZZ Excision of Right Metatarsal, Open Approach (ICD-10-PCS; 2021-07-30)
PROC: 5A1D70Z Performance of Urinary Filtration, Intermittent, Less than 6 Hours Per Day (ICD-10-PCS; 2021-08-01)
PROC: 30233N1 Transfusion of Nonautologous Red Blood Cells into Peripheral Vein, Percutaneous Approach (ICD-10-PCS; 2021-08-03)
PROC: 027034Z Dilation of Coronary Artery, One Artery with Drug-eluting Intraluminal Device, Percutaneous Approach (ICD-10-PCS; 2021-08-03)
PROC: 5A1D70Z Performance of Urinary Filtration, Intermittent, Less than 6 Hours Per Day (ICD-10-PCS; 2021-08-04)
DX: I21.4 Non-ST elevation (NSTEMI) myocardial infarction (principal); I50.23 Acute on chronic systolic (congestive) heart failure; J81.0 Acute pulmonary edema; N18.6 End stage renal disease; T82.855A Stenosis of coronary artery stent, initial encounter; M86.171 Other acute osteomyelitis, right ankle and foot; E44.0 Moderate protein-calorie malnutrition; D68.9 Coagulation defect, unspecified; E87.1 Hypo-osmolality and hyponatremia; I13.2 Hypertensive heart and chronic kidney disease with heart failure and with stage 5 chronic kidney disease, or end stage renal disease; L03.115 Cellulitis of right lower limb; E11.621 Type 2 diabetes mellitus with foot ulcer; E11.69 Type 2 diabetes mellitus with other specified complication; I25.10 Atherosclerotic heart disease of native coronary artery without angina pectoris; E11.21 Type 2 diabetes mellitus with diabetic nephropathy; D63.1 Anemia in chronic kidney disease; E83.39 Other disorders of phosphorus metabolism; E88.09 Other disorders of plasma-protein metabolism, not elsewhere classified; I16.0 Hypertensive urgency; E87.5 Hyperkalemia; E78.5 Hyperlipidemia, unspecified; Z20.822 Contact with and (suspected) exposure to COVID-19; Y83.8 Other surgical procedures as the cause of abnormal reaction of the patient, or of later complication, without mention of misadventure at the time of the procedure; B95.62 Methicillin resistant Staphylococcus aureus infection as the cause of diseases classified elsewhere; E11.22 Type 2 diabetes mellitus with diabetic chronic kidney disease; E11.51 Type 2 diabetes mellitus with diabetic peripheral angiopathy without gangrene; F17.210 Nicotine dependence, cigarettes, uncomplicated; E11.40 Type 2 diabetes mellitus with diabetic neuropathy, unspecified; G89.29 Other chronic pain; H40.9 Unspecified glaucoma; K08.89 Other specified disorders of teeth and supporting structures; K76.89 Other specified diseases of liver; L97.519 Non-pressure chronic ulcer of other part of right foot with unspecified severity; Z99.2 Dependence on renal dialysis; Z89.512 Acquired absence of left leg below knee; Z68.26 Body mass index [BMI] 26.0-26.9, adult; Y92.89 Other specified places as the place of occurrence of the external cause; Z90.49 Acquired absence of other specified parts of digestive tract; Z80.0 Family history of malignant neoplasm of digestive organs; Z82.49 Family history of ischemic heart disease and other diseases of the circulatory system; Z83.3 Family history of diabetes mellitus; Z88.8 Allergy status to other drugs, medicaments and biological substances
CPT/HCPCS: 36415; 36569; 71045; 73718; 74176; 75710; 80048; 80053; 80061; 80074; 80202; 82150; 82550; 82607; 82668; 82728; 82746; 82962; 83036; 83540; 83550; 83605; 83615; 83690; 83735; 83880; 84155; 84165; 84443; 84484; 85014; 85018; 85025; 85045; 85610; 85652; 85730; 86141; 86850; 86880; 86900; 86901; 86920; 87045; 87070; 87075; 87076; 87077; 87081; 87186; 87205; 87426; 87427; 90935; 92928; 93005; 93306; 93458; 93925; 96374; 96375; 99152; 99153; C1769; C1874; C1887; G0378; J0690; J1642; J1815; J2250; J2405; J2543; J2704; J3490; J7060; Q9967

== ENCOUNTER 2021-09-13 07:04 | Inpatient (IN) | payer MEDICARE, MEDICAID ==
[~2021-09-13] VITALS: Ht 182.9 cm; Wt 81.0 kg
[~2021-09-13 07:04] MED LIST: ALPR0.255 PO; ASPI-325 PO; ATO40T PO; CLON0.1T PO; CLOP75TA70 PO; HYDR50TA15 PO; LABE300T3 PO; LOS25T PO; NIFE1TAB30 PO; PANT40T PO; SEVE800T8 PO
[2021-09-13 08:44] LABS: Basophils # (auto) 0.1 10 ^3/uL (0-0.2); Eosinophils # (auto) 0.1 10 ^3/uL (0-0.8); Red Blood Cells 1.99 10^6/uL (4.5-5.90); White Blood Cell 10.5 10^3/uL (4.4-10.8)
[2021-09-13 08:46] LABS: Basophils % (auto) 1.1 % (0.0-2.0); Eosinophils % (auto) 0.8 % (0.0-7.0); Hematocrit 18.3 % (41.0-53.0); Lymphocytes # (auto) 0.8 10 ^3/uL (0.4-5.4); Lymphocytes % (auto) 7.5 % (10.0-50.0); Mean Corpuscular Hemoglobin 31.4 pg (28.0-32.0); Mean Corpuscular Volume 92.2 fL (80.0-100.0); Monocytes # (auto) 1.4 10 ^3/uL (0-1.3); Monocytes % (auto) 13.2 % (0.0-12.0); Neutrophils # (auto) 8.1 10 ^3/uL (1.6-8.6); Neutrophils % (auto) 77.4 % (37.0-80.0); Red Cell Distribution Width 18.6 % (11.8-14.3)
[2021-09-13 08:52] LABS: Hemoglobin 6.3 g/dL (13.5-17.5)
[2021-09-13 09:06] LABS: Albumin 1.7 g/dL (3.4-5.0); Calcium 9.5 mg/dL (8.5-10.1); Potassium 5.3 mmol/L (3.5-5.1)
[2021-09-13 09:10] LABS: Bilirubin, Total 1.4 mg/dL (0.2-1.0)
[2021-09-13] MEDS ORDERED: MORPHINE SULFATE INJECTION 2 MG/ML SYRG IV PRN ×3 (10:00→15:15)
[2021-09-13] MEDS ORDERED: NITROGLYCERIN 0.4 MG SL TAB SL PRN ×2 (10:00→15:15)
[2021-09-13] MEDS ORDERED: DESMOPRESSIN INJECTION 20 MCG in SODIUM CHL 0.9% 50 ML IV ONE (12:45)
[2021-09-13] MEDS ORDERED: ONDANSETRON HCL 4 MG/2 ML VIAL IV PRN ×2 (14:30→15:15)
[2021-09-13] MEDS ORDERED: LABETALOL HCL 5 MG/ML 4ML SYRINGE IV PRN (15:15)
[2021-09-13] MEDS ORDERED: PIPERACILLIN-TAZOB 2.25GM 50 ML IV ONE (15:15)
[2021-09-13] MEDS ORDERED: ALUM & MAG HYDROX-SIMETH LIQ(MAALOX) 30 ML PO PRN (15:15)
[2021-09-13] MEDS ORDERED: HYDROcodone-ACET 5/325MG TAB PO PRN (15:15)
[2021-09-13] MEDS ORDERED: DOCUSATE SOD 100 MG CAP PO PRN (15:15)
[2021-09-13] MEDS ORDERED: VANCOMYCIN PER PHARMACY 0 MG IV SCH (15:15)
[2021-09-13] MEDS ORDERED: VANCOMYCIN 1GM/250ML 250 ML IV ONE (15:45)
[2021-09-13] MEDS: SEVELAMER 800 MG TAB PO SCH (19:12)
[2021-09-13 20:49] VITALS: BP 123/30
[2021-09-13] MEDS: ACETAMINOPHEN 325 MG TAB PO PRN (21:00)
[2021-09-13 21:15] VITALS: BP 117/21
[2021-09-13 22:00] VITALS: BP 128/86
[2021-09-13] MEDS ORDERED: ATORVASTATIN 20 MG TAB PO SCH (22:00)
[2021-09-13] MEDS: NIFEdipine ER 30 MG TAB PO SCH (23:46)
[2021-09-13] MEDS: SACUBITRIL-VALSARTAN 24mg/26mg TAB PO SCH (23:46)
[2021-09-13] MEDS: PANTOPRAZOLE 40 MG TAB PO SCH (23:46)
[2021-09-13] MEDS: PIPERACILLIN-TAZOB 2.25GM 50 ML IV SCH (23:47)
[2021-09-13] MEDS: FUROSEMIDE 40 MG/4 ML VIAL IV SCH (23:47)
[2021-09-13] MEDS: hydrALAZINE HCL 25 MG TAB PO SCH (23:47)
[2021-09-14] VITALS (11 sets, daily range): BP systolic 112–160; BP diastolic 52–85
[2021-09-14] MEDS: MORPHINE SULFATE INJECTION 2 MG/ML SYRG IV PRN ×5 (00:14→21:43)
[2021-09-14] MEDS: FUROSEMIDE 40 MG/4 ML VIAL IV SCH ×2 (06:00→18:07)
[2021-09-14] MEDS: hydrALAZINE HCL 25 MG TAB PO SCH ×3 (06:00→21:43)
[2021-09-14 07:04] LABS: Basophils # (auto) 0.1 10 ^3/uL (0-0.2); Basophils % (auto) 0.6 % (0.0-2.0); Eosinophils # (auto) 0.1 10 ^3/uL (0-0.8); Hematocrit 25.1 % (41.0-53.0); Hemoglobin 8.5 g/dL (13.5-17.5); Lymphocytes # (auto) 0.8 10 ^3/uL (0.4-5.4); Lymphocytes % (auto) 7.5 % (10.0-50.0); Mean Corpuscular Hemoglobin 30.9 pg (28.0-32.0); Mean Corpuscular Hgb Conc. 33.9 g/dL (32.0-36.0); Mean Corpuscular Volume 91.2 fL (80.0-100.0); Monocytes # (auto) 1.2 10 ^3/uL (0-1.3); Monocytes % (auto) 11.2 % (0.0-12.0); Neutrophils # (auto) 8.8 10 ^3/uL (1.6-8.6); Neutrophils % (auto) 79.7 % (37.0-80.0); Nucleated Red Blood Cells % 0.2 %; Red Blood Cells 2.75 10^6/uL (4.5-5.90); Red Cell Distribution Width 17.7 % (11.8-14.3); White Blood Cell 11.1 10^3/uL (4.4-10.8)
[2021-09-14 07:19] LABS: INR 1.49 (0.9-1.15); Partial Thromboplastin Time 42.9 sec (23.6-33.0)
[2021-09-14 07:24] LABS: % Iron Saturation 12.5 % (20-55); Albumin 1.6 g/dL (3.4-5.0); Calcium 9.4 mg/dL (8.5-10.1); Magnesium 2.3 mg/dL (1.6-2.6); Potassium 5.4 mmol/L (3.5-5.1)
[2021-09-14 07:33] LABS: BUN/Creatinine Ratio 5.9; Bilirubin, Total 1.5 mg/dL (0.2-1.0); Phosphorus 6.7 mg/dL (2.5-4.90)
[2021-09-14] MEDS: SEVELAMER 800 MG TAB PO SCH ×3 (08:00→18:07)
[2021-09-14] MEDS: SACUBITRIL-VALSARTAN 24mg/26mg TAB PO SCH ×2 (11:34→21:42)
[2021-09-14] MEDS: PANTOPRAZOLE 40 MG TAB PO SCH ×2 (11:34→21:31)
[2021-09-14] MEDS: CLOPIDOGREL BISULFATE 75 MG TAB PO SCH (11:34)
[2021-09-14] MEDS: ASPirin 81 mg TAB PO SCH (11:35)
[2021-09-14] MEDS: NIFEdipine ER 30 MG TAB PO SCH ×2 (11:35→21:43)
[2021-09-14] MEDS: PIPERACILLIN-TAZOB 2.25GM 50 ML IV SCH ×2 (11:37→21:31)
[2021-09-14] MEDS ORDERED: EPOETIN ALFA-EPBX 10,000 UNIT/1ML VIAL SC ONE (21:00)
[2021-09-14] MEDS: ATORVASTATIN 20 MG TAB PO SCH (21:31)
[2021-09-15] MEDS: MORPHINE SULFATE INJECTION 2 MG/ML SYRG IV PRN ×3 (02:20→20:38)
[2021-09-15] MEDS: FUROSEMIDE 40 MG/4 ML VIAL IV SCH ×2 (05:50→17:34)
[2021-09-15] MEDS: hydrALAZINE HCL 25 MG TAB PO SCH ×3 (05:50→21:29)
[2021-09-15 05:52] VITALS: BP 122/56
[2021-09-15 06:36] LABS: INR 1.51 (0.9-1.15); Partial Thromboplastin Time 43.1 sec (23.6-33.0)
[2021-09-15 06:53] LABS: Albumin 1.5 g/dL (3.4-5.0); BUN/Creatinine Ratio 5.4; Bilirubin, Total 1.2 mg/dL (0.2-1.0); Calcium 9.4 mg/dL (8.5-10.1)
[2021-09-15] MEDS: SEVELAMER 800 MG TAB PO SCH ×3 (07:57→17:55)
[2021-09-15] MEDS: ASPirin 81 mg TAB PO SCH (09:28)
[2021-09-15] MEDS: PIPERACILLIN-TAZOB 2.25GM 50 ML IV SCH ×2 (09:28→21:29)
[2021-09-15] MEDS: SACUBITRIL-VALSARTAN 24mg/26mg TAB PO SCH ×2 (09:28→21:29)
[2021-09-15] MEDS: CLOPIDOGREL BISULFATE 75 MG TAB PO SCH (09:28)
[2021-09-15] MEDS: PANTOPRAZOLE 40 MG TAB PO SCH ×2 (09:29→21:30)
[2021-09-15] MEDS: NIFEdipine ER 30 MG TAB PO SCH ×2 (09:29→21:30)
[2021-09-15 09:30] VITALS: BP 89/35
[2021-09-15 10:13] LABS: Basophils # (auto) 0.1 10 ^3/uL (0-0.2); Basophils % (auto) 0.6 % (0.0-2.0); Eosinophils # (auto) 0.1 10 ^3/uL (0-0.8); Eosinophils % (auto) 1.3 % (0.0-7.0); Hematocrit 26.4 % (41.0-53.0); Hemoglobin 8.9 g/dL (13.5-17.5); Lymphocytes # (auto) 0.7 10 ^3/uL (0.4-5.4); Lymphocytes % (auto) 7.4 % (10.0-50.0); Mean Corpuscular Hemoglobin 30.8 pg (28.0-32.0); Mean Corpuscular Hgb Conc. 33.7 g/dL (32.0-36.0); Mean Corpuscular Volume 91.5 fL (80.0-100.0); Monocytes # (auto) 0.9 10 ^3/uL (0-1.3); Monocytes % (auto) 9.2 % (0.0-12.0); Neutrophils # (auto) 8.2 10 ^3/uL (1.6-8.6); Neutrophils % (auto) 81.5 % (37.0-80.0); Red Blood Cells 2.88 10^6/uL (4.5-5.90); Red Cell Distribution Width 17.7 % (11.8-14.3); White Blood Cell 10.1 10^3/uL (4.4-10.8)
[2021-09-15] MEDS ORDERED: PIPERACILLIN-TAZOB 0.75 GM in D5W 5% 50 ML IV SCH (11:45)
[2021-09-15] MEDS ORDERED: IODIXANOL 320MG/ML 100ML BTL IV ONE (12:33)
[2021-09-15] MEDS ORDERED: MIDAZOLAM HCL 2MG/2ML 2ml VIAL (1mg/ml) ONE (12:40)
[2021-09-15] MEDS ORDERED: fentaNYL CITRATE 100 MCG/2 ML VL ONE (12:40)
[2021-09-15 13:06] VITALS: BP 102/48
[2021-09-15] MEDS ORDERED: diphenhdrAMINE HCL 50 MG/1 ML VL ONE (13:47)
[2021-09-15] MEDS ORDERED: HEPARIN SODIUM (PORCINE) 5000 UNITS/ML 1ML VIAL ONE (14:28)
[2021-09-15 16:41] VITALS: BP 92/57
[2021-09-15] MEDS: ATORVASTATIN 20 MG TAB PO SCH (21:29)
[2021-09-15] MEDS: ACETAMINOPHEN 325 MG TAB PO PRN (21:30)
[2021-09-15 21:44] VITALS: BP 151/87
[2021-09-16] MEDS: MORPHINE SULFATE INJECTION 2 MG/ML SYRG IV PRN ×3 (03:24→18:06)
[2021-09-16 04:43] VITALS: BP 147/72
[2021-09-16] MEDS: hydrALAZINE HCL 25 MG TAB PO SCH ×3 (06:00→22:34)
[2021-09-16] MEDS: FUROSEMIDE 40 MG/4 ML VIAL IV SCH ×2 (06:00→17:25)
[2021-09-16] MEDS ORDERED: SODIUM CHL 0.9% 1000 ML BAG XX ONE (07:00)
[2021-09-16] MEDS: SEVELAMER 800 MG TAB PO SCH ×3 (08:00→17:25)
[2021-09-16 08:23] VITALS: BP 144/70
[2021-09-16] MEDS: CLOPIDOGREL BISULFATE 75 MG TAB PO SCH (08:47)
[2021-09-16] MEDS: PANTOPRAZOLE 40 MG TAB PO SCH ×2 (08:47→22:35)
[2021-09-16] MEDS: ASPirin 81 mg TAB PO SCH (08:49)
[2021-09-16] MEDS: PIPERACILLIN-TAZOB 2.25GM 50 ML IV SCH ×2 (08:49→22:34)
[2021-09-16] MEDS: NIFEdipine ER 30 MG TAB PO SCH ×2 (09:54→22:35)
[2021-09-16] MEDS: SACUBITRIL-VALSARTAN 24mg/26mg TAB PO SCH ×2 (09:54→22:34)
[2021-09-16 10:28] LABS: BUN/Creatinine Ratio 5.7; Calcium 9.4 mg/dL (8.5-10.1); Potassium 5.2 mmol/L (3.5-5.1)
[2021-09-16 11:32] VITALS: BP 118/88
[2021-09-16] MEDS ORDERED: PIPERACILLIN-TAZOB 0.75 GM in D5W 5% 50 ML IV ONE (16:00)
[2021-09-16 16:05] VITALS: BP 125/60
[2021-09-16 16:21] VITALS: BP 125/60
[2021-09-16] MEDS: ACETAMINOPHEN 325 MG TAB PO PRN (21:19)
[2021-09-16 22:00] VITALS: BP 141/54
[2021-09-16] MEDS: ATORVASTATIN 20 MG TAB PO SCH (22:34)
[2021-09-17] MEDS: MORPHINE SULFATE INJECTION 2 MG/ML SYRG IV PRN ×5 (00:31→20:00)
[2021-09-17 05:20] VITALS: BP 143/61
[2021-09-17] MEDS: FUROSEMIDE 40 MG/4 ML VIAL IV SCH ×2 (06:13→17:44)
[2021-09-17] MEDS: hydrALAZINE HCL 25 MG TAB PO SCH ×3 (06:14→22:02)
[2021-09-17] MEDS: SEVELAMER 800 MG TAB PO SCH ×3 (08:00→17:44)
[2021-09-17 09:08] VITALS: BP 98/50
[2021-09-17] MEDS: PIPERACILLIN-TAZOB 2.25GM 50 ML IV SCH ×2 (09:18→22:02)
[2021-09-17] MEDS: PANTOPRAZOLE 40 MG TAB PO SCH ×2 (09:18→22:04)
[2021-09-17] MEDS: CLOPIDOGREL BISULFATE 75 MG TAB PO SCH (09:18)
[2021-09-17] MEDS: ASPirin 81 mg TAB PO SCH (09:18)
[2021-09-17] MEDS: SACUBITRIL-VALSARTAN 24mg/26mg TAB PO SCH ×2 (09:18→22:02)
[2021-09-17] MEDS: NIFEdipine ER 30 MG TAB PO SCH ×2 (10:00→22:03)
[2021-09-17 13:15] VITALS: BP 149/77
[2021-09-17 16:41] VITALS: BP 145/73
[2021-09-17 22:00] VITALS: BP 149/71
[2021-09-17] MEDS: ATORVASTATIN 20 MG TAB PO SCH (22:03)
[2021-09-18] MEDS: MORPHINE SULFATE INJECTION 2 MG/ML SYRG IV PRN ×5 (00:13→18:27)
[2021-09-18] MEDS: LORazepam 0.5 MG TAB PO PRN ×2 (02:08→21:38)
[2021-09-18 05:00] VITALS: BP 136/58
[2021-09-18] MEDS: FUROSEMIDE 40 MG/4 ML VIAL IV SCH ×2 (05:46→17:04)
[2021-09-18] MEDS: ACETAMINOPHEN 325 MG TAB PO PRN (05:46)
[2021-09-18] MEDS: hydrALAZINE HCL 25 MG TAB PO SCH ×3 (05:47→21:34)
[2021-09-18 06:13] LABS: Basophils # (auto) 0.1 10 ^3/uL (0-0.2); Basophils % (auto) 0.8 % (0.0-2.0); Eosinophils # (auto) 0.1 10 ^3/uL (0-0.8); Eosinophils % (auto) 1.1 % (0.0-7.0); Hematocrit 26.3 % (41.0-53.0); Hemoglobin 8.8 g/dL (13.5-17.5); Lymphocytes # (auto) 0.7 10 ^3/uL (0.4-5.4); Lymphocytes % (auto) 6.1 % (10.0-50.0); Mean Corpuscular Hemoglobin 30.2 pg (28.0-32.0); Mean Corpuscular Hgb Conc. 33.5 g/dL (32.0-36.0); Mean Corpuscular Volume 90.2 fL (80.0-100.0); Monocytes # (auto) 0.7 10 ^3/uL (0-1.3); Monocytes % (auto) 6.3 % (0.0-12.0); Neutrophils # (auto) 9.4 10 ^3/uL (1.6-8.6); Neutrophils % (auto) 85.7 % (37.0-80.0); Red Blood Cells 2.92 10^6/uL (4.5-5.90); Red Cell Distribution Width 17.5 % (11.8-14.3)
[2021-09-18 06:25] LABS: Calcium 9.7 mg/dL (8.5-10.1)
[2021-09-18 06:28] LABS: BUN/Creatinine Ratio 5.6
[2021-09-18] MEDS ORDERED: SODIUM CHL 0.9% 1000 ML BAG XX ONE (07:00)
[2021-09-18] MEDS: SEVELAMER 800 MG TAB PO SCH ×3 (08:00→17:04)
[2021-09-18] MEDS: cefTRIAXone 1GM/50ML D5W 50 ML IV SCH (09:00)
[2021-09-18 09:02] VITALS: BP 124/57
[2021-09-18] MEDS: CLOPIDOGREL BISULFATE 75 MG TAB PO SCH (10:00)
[2021-09-18] MEDS: PANTOPRAZOLE 40 MG TAB PO SCH ×2 (10:00→21:36)
[2021-09-18] MEDS: SACUBITRIL-VALSARTAN 24mg/26mg TAB PO SCH ×2 (10:00→21:36)
[2021-09-18] MEDS: ASPirin 81 mg TAB PO SCH (10:00)
[2021-09-18] MEDS: NIFEdipine ER 30 MG TAB PO SCH ×2 (10:00→21:37)
[2021-09-18 12:43] VITALS: BP 156/57
[2021-09-18 16:17] VITALS: BP 120/61
[2021-09-18] MEDS ORDERED: VANCOMYCIN 500 MG in D5W 5% 100 ML IV ONE (17:00)
[2021-09-18 20:00] VITALS: BP 156/76
[2021-09-18] MEDS ORDERED: EPOETIN ALFA-EPBX 10,000 UNIT/1ML VIAL SC ONE (21:00)
[2021-09-18] MEDS: ATORVASTATIN 20 MG TAB PO SCH (21:35)
[2021-09-18 22:23] VITALS: BP 149/69
[2021-09-19] MEDS: MORPHINE SULFATE INJECTION 2 MG/ML SYRG IV PRN ×5 (04:59→21:45)
[2021-09-19 05:00] VITALS: BP 105/62
[2021-09-19] MEDS: FUROSEMIDE 40 MG/4 ML VIAL IV SCH ×2 (06:42→17:46)
[2021-09-19] MEDS: hydrALAZINE HCL 25 MG TAB PO SCH ×3 (06:43→21:42)
[2021-09-19] MEDS: SEVELAMER 800 MG TAB PO SCH ×3 (08:00→17:45)
[2021-09-19 09:00] VITALS: BP 99/70
[2021-09-19] MEDS: ASPirin 81 mg TAB PO SCH (09:19)
[2021-09-19] MEDS: SACUBITRIL-VALSARTAN 24mg/26mg TAB PO SCH ×2 (09:19→21:42)
[2021-09-19] MEDS: CLOPIDOGREL BISULFATE 75 MG TAB PO SCH (09:19)
[2021-09-19] MEDS: NIFEdipine ER 30 MG TAB PO SCH ×2 (09:19→21:43)
[2021-09-19] MEDS: cefTRIAXone 1GM/50ML D5W 50 ML IV SCH (09:19)
[2021-09-19] MEDS: PANTOPRAZOLE 40 MG TAB PO SCH ×2 (09:19→21:42)
[2021-09-19 12:40] VITALS: BP 88/59
[2021-09-19 17:00] VITALS: BP 105/81
[2021-09-19] MEDS: ATORVASTATIN 20 MG TAB PO SCH (21:42)
[2021-09-19 22:00] VITALS: BP 118/54
[2021-09-20] MEDS: MORPHINE SULFATE INJECTION 2 MG/ML SYRG IV PRN ×2 (02:40→15:29)
[2021-09-20 05:00] VITALS: BP 97/67
[2021-09-20] MEDS: hydrALAZINE HCL 25 MG TAB PO SCH ×3 (06:48→22:00)
[2021-09-20] MEDS: FUROSEMIDE 40 MG/4 ML VIAL IV SCH ×2 (06:49→17:54)
[2021-09-20 07:02] LABS: Basophils # (auto) 0.1 10 ^3/uL (0-0.2); Basophils % (auto) 0.8 % (0.0-2.0); Eosinophils # (auto) 0.3 10 ^3/uL (0-0.8); Eosinophils % (auto) 2.6 % (0.0-7.0); Hemoglobin 9.2 g/dL (13.5-17.5); Lymphocytes # (auto) 0.8 10 ^3/uL (0.4-5.4); Lymphocytes % (auto) 6.7 % (10.0-50.0); Mean Corpuscular Hemoglobin 30.8 pg (28.0-32.0); Mean Corpuscular Volume 90.4 fL (80.0-100.0); Monocytes # (auto) 0.6 10 ^3/uL (0-1.3); Neutrophils # (auto) 10.6 10 ^3/uL (1.6-8.6); Neutrophils % (auto) 84.9 % (37.0-80.0); Nucleated Red Blood Cells % 0.1 %; Red Blood Cells 2.99 10^6/uL (4.5-5.90); Red Cell Distribution Width 17.5 % (11.8-14.3); White Blood Cell 12.4 10^3/uL (4.4-10.8)
[2021-09-20 07:24] LABS: Potassium 5.1 mmol/L (3.5-5.1)
[2021-09-20 07:28] LABS: INR 1.56 (0.9-1.15); Partial Thromboplastin Time 47.3 sec (23.6-33.0)
[2021-09-20 07:29] LABS: Albumin 1.4 g/dL (3.4-5.0); BUN/Creatinine Ratio 5.8; Calcium 8.9 mg/dL (8.5-10.1); Magnesium 2.3 mg/dL (1.6-2.6)
[2021-09-20 07:32] LABS: Phosphorus 7.4 mg/dL (2.5-4.90); Total Protein 6.8 g/dL (6.4-8.2)
[2021-09-20 08:00] VITALS: BP 99/50
[2021-09-20] MEDS: SEVELAMER 800 MG TAB PO SCH ×3 (08:00→17:54)
[2021-09-20] MEDS: PANTOPRAZOLE 40 MG TAB PO SCH ×2 (09:29→21:44)
[2021-09-20] MEDS: SACUBITRIL-VALSARTAN 24mg/26mg TAB PO SCH ×2 (09:29→21:44)
[2021-09-20] MEDS: cefTRIAXone 1GM/50ML D5W 50 ML IV SCH (09:29)
[2021-09-20] MEDS: CLOPIDOGREL BISULFATE 75 MG TAB PO SCH (09:29)
[2021-09-20] MEDS: ASPirin 81 mg TAB PO SCH (09:29)
[2021-09-20] MEDS: NIFEdipine ER 30 MG TAB PO SCH ×2 (09:30→22:00)
[2021-09-20 13:00] VITALS: BP 129/34
[2021-09-20 17:00] VITALS: BP 127/66
[2021-09-20] MEDS: ATORVASTATIN 20 MG TAB PO SCH (21:44)
[2021-09-20 22:00] VITALS: BP 109/44
[2021-09-21] MEDS: MORPHINE SULFATE INJECTION 2 MG/ML SYRG IV PRN ×3 (04:57→20:43)
[2021-09-21] MEDS: hydrALAZINE HCL 25 MG TAB PO SCH ×3 (05:05→22:00)
[2021-09-21] MEDS: FUROSEMIDE 40 MG/4 ML VIAL IV SCH ×2 (05:05→18:29)
[2021-09-21 05:19] VITALS: BP 125/71
[2021-09-21] MEDS ORDERED: SODIUM CHL 0.9% 1000 ML BAG XX ONE (07:00)
[2021-09-21 07:13] LABS: Hematocrit 31.3 % (41.0-53.0); Hemoglobin 10.1 g/dL (13.5-17.5); Mean Corpuscular Hemoglobin 29.4 pg (28.0-32.0); Mean Corpuscular Hgb Conc. 32.4 g/dL (32.0-36.0); Mean Corpuscular Volume 90.9 fL (80.0-100.0); Red Blood Cells 3.45 10^6/uL (4.5-5.90); Red Cell Distribution Width 17.5 % (11.8-14.3)
[2021-09-21 07:21] LABS: Basophils % (manual) 0 (0.0-2.0); Blast Cells 0; Eosinophils % (manual) 0 (0-7); Metamyelocytes % 0; Monocytes % (manual) 0 (0-12); Myelocytes % 0; Promyelocytes % 0; Reactive Lymphocytes 0
[2021-09-21 07:28] LABS: INR 1.55 (0.9-1.15); Partial Thromboplastin Time 39.6 sec (23.6-33.0)
[2021-09-21] MEDS: SEVELAMER 800 MG TAB PO SCH ×3 (08:00→18:29)
[2021-09-21 09:00] VITALS: BP 117/65
[2021-09-21 09:35] LABS: Band Neutrophils % (manual) 16; Lymphocytes % (manual) 2 (10.0-50.0)
[2021-09-21] MEDS: SACUBITRIL-VALSARTAN 24mg/26mg TAB PO SCH ×2 (10:00→22:06)
[2021-09-21] MEDS: NIFEdipine ER 30 MG TAB PO SCH ×2 (10:00→22:00)
[2021-09-21 11:27] LABS: Hematocrit 31.3 % (41.0-53.0); Hemoglobin 10.2 g/dL (13.5-17.5); Mean Corpuscular Hemoglobin 29.6 pg (28.0-32.0); Mean Corpuscular Hgb Conc. 32.8 g/dL (32.0-36.0); Mean Corpuscular Volume 90.5 fL (80.0-100.0); Red Blood Cells 3.46 10^6/uL (4.5-5.90); Red Cell Distribution Width 17.5 % (11.8-14.3); White Blood Cell 21.3 10^3/uL (4.4-10.8)
[2021-09-21 11:28] LABS: Basophils % (manual) 0 (0.0-2.0); Blast Cells 0; Eosinophils % (manual) 0 (0-7); Metamyelocytes % 0; Monocytes % (manual) 0 (0-12); Myelocytes % 0; Promyelocytes % 0; Reactive Lymphocytes 0
[2021-09-21 12:09] LABS: Band Neutrophils % (manual) 4; Lymphocytes % (manual) 4 (10.0-50.0)
[2021-09-21 12:19] LABS: Albumin 1.3 g/dL (3.4-5.0); Calcium 8.7 mg/dL (8.5-10.1); Magnesium 2.5 mg/dL (1.6-2.6); Potassium 4.7 mmol/L (3.5-5.1)
[2021-09-21 12:26] LABS: Phosphorus 7.9 mg/dL (2.5-4.90); Total Protein 7.2 g/dL (6.4-8.2)
[2021-09-21] MEDS: cefTRIAXone 1GM/50ML D5W 50 ML IV SCH (12:30)
[2021-09-21] MEDS: CLOPIDOGREL BISULFATE 75 MG TAB PO SCH (12:30)
[2021-09-21] MEDS: ASPirin 81 mg TAB PO SCH (12:30)
[2021-09-21] MEDS: PANTOPRAZOLE 40 MG TAB PO SCH ×2 (12:31→22:06)
[2021-09-21 13:00] VITALS: BP 150/71
[2021-09-21 17:00] VITALS: BP 139/65
[2021-09-21] MEDS ORDERED: EPOETIN ALFA-EPBX 10,000 UNIT/1ML VIAL SC ONE (21:00)
[2021-09-21 22:00] VITALS: BP 126/49
[2021-09-21] MEDS: ATORVASTATIN 20 MG TAB PO SCH (22:06)
[2021-09-22 05:00] VITALS: BP 138/65
[2021-09-22] MEDS: hydrALAZINE HCL 25 MG TAB PO SCH ×3 (06:13→22:00)
[2021-09-22] MEDS: FUROSEMIDE 40 MG/4 ML VIAL IV SCH ×2 (06:13→18:07)
[2021-09-22 06:44] LABS: Basophils # (auto) 0.2 10 ^3/uL (0-0.2); Basophils % (auto) 1.2 % (0.0-2.0); Eosinophils # (auto) 0.3 10 ^3/uL (0-0.8); Eosinophils % (auto) 1.9 % (0.0-7.0); Hematocrit 32.5 % (41.0-53.0); Hemoglobin 10.7 g/dL (13.5-17.5); Lymphocytes # (auto) 0.6 10 ^3/uL (0.4-5.4); Lymphocytes % (auto) 4.4 % (10.0-50.0); Mean Corpuscular Hemoglobin 29.8 pg (28.0-32.0); Mean Corpuscular Volume 90.3 fL (80.0-100.0); Monocytes # (auto) 0.8 10 ^3/uL (0-1.3); Monocytes % (auto) 5.2 % (0.0-12.0); Neutrophils # (auto) 12.9 10 ^3/uL (1.6-8.6); Neutrophils % (auto) 87.3 % (37.0-80.0); Nucleated Red Blood Cells % 0.1 %; Red Blood Cells 3.61 10^6/uL (4.5-5.90); Red Cell Distribution Width 17.6 % (11.8-14.3); White Blood Cell 14.8 10^3/uL (4.4-10.8)
[2021-09-22 07:05] LABS: BUN/Creatinine Ratio 5.5; Calcium 8.5 mg/dL (8.5-10.1)
[2021-09-22] MEDS: SEVELAMER 800 MG TAB PO SCH ×3 (08:00→18:07)
[2021-09-22 08:30] VITALS: BP 150/88
[2021-09-22] MEDS: PANTOPRAZOLE 40 MG TAB PO SCH ×2 (10:35→21:14)
[2021-09-22] MEDS: CLOPIDOGREL BISULFATE 75 MG TAB PO SCH (10:35)
[2021-09-22] MEDS: cefTRIAXone 1GM/50ML D5W 50 ML IV SCH (10:35)
[2021-09-22] MEDS: ASPirin 81 mg TAB PO SCH (10:36)
[2021-09-22] MEDS: NIFEdipine ER 30 MG TAB PO SCH ×2 (10:36→22:00)
[2021-09-22] MEDS: SACUBITRIL-VALSARTAN 24mg/26mg TAB PO SCH ×2 (10:36→21:13)
[2021-09-22] MEDS: MORPHINE SULFATE INJECTION 2 MG/ML SYRG IV PRN ×2 (11:00→21:15)
[2021-09-22 12:30] VITALS: BP 142/87
[2021-09-22 16:22] VITALS: BP 160/79
[2021-09-22] MEDS: ATORVASTATIN 20 MG TAB PO SCH (21:14)
[2021-09-22 22:00] VITALS: BP 125/55
[2021-09-23 05:00] VITALS: BP 110/75
[2021-09-23] MEDS: FUROSEMIDE 40 MG/4 ML VIAL IV SCH ×2 (05:31→18:00)
[2021-09-23] MEDS: hydrALAZINE HCL 25 MG TAB PO SCH ×3 (05:32→21:15)
[2021-09-23] MEDS: MORPHINE SULFATE INJECTION 2 MG/ML SYRG IV PRN ×2 (05:48→18:51)
[2021-09-23] MEDS ORDERED: SODIUM CHL 0.9% 1000 ML BAG XX ONE (07:00)
[2021-09-23 07:31] LABS: Basophils # (auto) 0.1 10 ^3/uL (0-0.2); Basophils % (auto) 0.5 % (0.0-2.0); Eosinophils # (auto) 0.1 10 ^3/uL (0-0.8); Eosinophils % (auto) 0.6 % (0.0-7.0); Hematocrit 29.3 % (41.0-53.0); Hemoglobin 9.7 g/dL (13.5-17.5); Lymphocytes # (auto) 0.7 10 ^3/uL (0.4-5.4); Lymphocytes % (auto) 4.9 % (10.0-50.0); Mean Corpuscular Hemoglobin 29.8 pg (28.0-32.0); Mean Corpuscular Hgb Conc. 33.3 g/dL (32.0-36.0); Mean Corpuscular Volume 89.5 fL (80.0-100.0); Monocytes # (auto) 0.8 10 ^3/uL (0-1.3); Monocytes % (auto) 5.7 % (0.0-12.0); Neutrophils # (auto) 13.1 10 ^3/uL (1.6-8.6); Neutrophils % (auto) 88.3 % (37.0-80.0); Nucleated Red Blood Cells % 0.1 %; Red Blood Cells 3.27 10^6/uL (4.5-5.90); Red Cell Distribution Width 17.6 % (11.8-14.3); White Blood Cell 14.9 10^3/uL (4.4-10.8)
[2021-09-23 09:00] VITALS: BP 136/62
[2021-09-23] MEDS: SEVELAMER 800 MG TAB PO SCH ×3 (09:13→18:00)
[2021-09-23] MEDS: cefTRIAXone 1GM/50ML D5W 50 ML IV SCH (09:13)
[2021-09-23] MEDS: PANTOPRAZOLE 40 MG TAB PO SCH ×2 (09:16→21:08)
[2021-09-23] MEDS: CLOPIDOGREL BISULFATE 75 MG TAB PO SCH (09:16)
[2021-09-23] MEDS: ASPirin 81 mg TAB PO SCH (09:16)
[2021-09-23] MEDS: SACUBITRIL-VALSARTAN 24mg/26mg TAB PO SCH ×2 (09:17→21:07)
[2021-09-23] MEDS: NIFEdipine ER 30 MG TAB PO SCH ×2 (09:17→21:16)
[2021-09-23 13:00] VITALS: BP 134/64
[2021-09-23 17:00] VITALS: BP 165/76
[2021-09-23] MEDS: Pro-Stat SF 30ml Vanilla PO SCH (18:00)
[2021-09-23] MEDS ORDERED: EPOETIN ALFA-EPBX 4,000 UNIT/ML VIAL SC ONE (21:00)
[2021-09-23] MEDS: ATORVASTATIN 20 MG TAB PO SCH (21:08)
[2021-09-23 21:18] VITALS: BP 129/46
[2021-09-24] MEDS: MORPHINE SULFATE INJECTION 2 MG/ML SYRG IV PRN ×3 (04:13→20:37)
[2021-09-24 05:00] VITALS: BP 164/84
[2021-09-24] MEDS: hydrALAZINE HCL 25 MG TAB PO SCH ×3 (05:04→21:56)
[2021-09-24] MEDS: FUROSEMIDE 40 MG/4 ML VIAL IV SCH ×2 (05:04→18:01)
[2021-09-24 07:22] LABS: Basophils # (auto) 0.1 10 ^3/uL (0-0.2); Basophils % (auto) 0.6 % (0.0-2.0); Eosinophils # (auto) 0.2 10 ^3/uL (0-0.8); Eosinophils % (auto) 1.3 % (0.0-7.0); Hematocrit 30.6 % (41.0-53.0); Hemoglobin 10.1 g/dL (13.5-17.5); Lymphocytes # (auto) 0.7 10 ^3/uL (0.4-5.4); Lymphocytes % (auto) 4.4 % (10.0-50.0); Mean Corpuscular Hemoglobin 29.8 pg (28.0-32.0); Mean Corpuscular Hgb Conc. 33.1 g/dL (32.0-36.0); Mean Corpuscular Volume 90.2 fL (80.0-100.0); Monocytes % (auto) 6.1 % (0.0-12.0); Neutrophils % (auto) 87.6 % (37.0-80.0); Red Cell Distribution Width 17.2 % (11.8-14.3); White Blood Cell 15.9 10^3/uL (4.4-10.8)
[2021-09-24] MEDS: cefTRIAXone 1GM/50ML D5W 50 ML IV SCH (08:35)
[2021-09-24] MEDS: ASPirin 81 mg TAB PO SCH (08:35)
[2021-09-24] MEDS: PANTOPRAZOLE 40 MG TAB PO SCH ×2 (08:35→21:51)
[2021-09-24] MEDS: SEVELAMER 800 MG TAB PO SCH ×3 (08:35→18:02)
[2021-09-24] MEDS: SACUBITRIL-VALSARTAN 24mg/26mg TAB PO SCH ×2 (08:36→21:55)
[2021-09-24] MEDS: CLOPIDOGREL BISULFATE 75 MG TAB PO SCH (08:36)
[2021-09-24] MEDS: NIFEdipine ER 30 MG TAB PO SCH ×2 (08:36→21:55)
[2021-09-24] MEDS: Pro-Stat SF 30ml Vanilla PO SCH ×2 (08:37→18:01)
[2021-09-24 09:00] VITALS: BP 148/65
[2021-09-24 12:00] VITALS: BP 156/56
[2021-09-24] MEDS ORDERED: VANCOMYCIN 1GM/250ML 250 ML IV ONE (14:00)
[2021-09-24 17:00] VITALS: BP 152/79
[2021-09-24] MEDS: ATORVASTATIN 20 MG TAB PO SCH (21:52)
[2021-09-24 21:53] VITALS: BP 124/60
[2021-09-25 05:00] VITALS: BP 119/57
[2021-09-25] MEDS: hydrALAZINE HCL 25 MG TAB PO SCH ×2 (05:36→13:51)
[2021-09-25] MEDS: FUROSEMIDE 40 MG/4 ML VIAL IV SCH (05:36)
[2021-09-25 06:51] LABS: Basophils # (auto) 0.1 10 ^3/uL (0-0.2); Basophils % (auto) 0.5 % (0.0-2.0); Eosinophils # (auto) 0.2 10 ^3/uL (0-0.8); Eosinophils % (auto) 1.1 % (0.0-7.0); Hematocrit 26.9 % (41.0-53.0); Hemoglobin 8.9 g/dL (13.5-17.5); Lymphocytes # (auto) 0.7 10 ^3/uL (0.4-5.4); Lymphocytes % (auto) 5.2 % (10.0-50.0); Mean Corpuscular Hemoglobin 30.2 pg (28.0-32.0); Mean Corpuscular Volume 91.5 fL (80.0-100.0); Monocytes # (auto) 0.7 10 ^3/uL (0-1.3); Monocytes % (auto) 5.2 % (0.0-12.0); Neutrophils # (auto) 12.1 10 ^3/uL (1.6-8.6); Nucleated Red Blood Cells % 0.1 %; Red Blood Cells 2.94 10^6/uL (4.5-5.90); Red Cell Distribution Width 17.3 % (11.8-14.3); White Blood Cell 13.8 10^3/uL (4.4-10.8)
[2021-09-25] MEDS: SACUBITRIL-VALSARTAN 24mg/26mg TAB PO SCH (08:34)
[2021-09-25] MEDS: cefTRIAXone 1GM/50ML D5W 50 ML IV SCH (08:34)
[2021-09-25] MEDS: PANTOPRAZOLE 40 MG TAB PO SCH (08:35)
[2021-09-25] MEDS: SEVELAMER 800 MG TAB PO SCH ×2 (08:35→12:00)
[2021-09-25] MEDS: CLOPIDOGREL BISULFATE 75 MG TAB PO SCH (08:35)
[2021-09-25] MEDS: ASPirin 81 mg TAB PO SCH (08:35)
[2021-09-25] MEDS: NIFEdipine ER 30 MG TAB PO SCH (08:35)
[2021-09-25] MEDS: Pro-Stat SF 30ml Vanilla PO SCH (08:51)
[2021-09-25 09:17] VITALS: BP 147/79
[2021-09-25] MEDS ORDERED: SODIUM CHL 0.9% 1000 ML BAG XX ONE (10:00)
[2021-09-25] MEDS: MORPHINE SULFATE INJECTION 2 MG/ML SYRG IV PRN (10:02)
[2021-09-25 13:00] VITALS: BP 147/36
[2021-09-25] MEDS ORDERED: VANCOMYCIN 500 MG in D5W 5% 100 ML IV ONE (13:00)
[2021-09-25 16:49] VITALS: BP 135/67
[2021-09-25] MEDS ORDERED: EPOETIN ALFA-EPBX 4,000 UNIT/ML VIAL SC ONE (21:00)
== END 2021-09-25 18:57 | disposition home health service (06) | DRG 853 ==
LOC: EDBD 07:04 → ER 07:04 → TELE 09:50 → TELE-EAST 23:50
PROVIDERS: ADMIT Hospitalist; ATTEND Internal Medicine
PROC: 30233N1 Transfusion of Nonautologous Red Blood Cells into Peripheral Vein, Percutaneous Approach (ICD-10-PCS; principal; 2021-09-13)
PROC: 5A1D70Z Performance of Urinary Filtration, Intermittent, Less than 6 Hours Per Day (ICD-10-PCS; 2021-09-14)
PROC: 057C3ZZ Dilation of Left Basilic Vein, Percutaneous Approach (ICD-10-PCS; 2021-09-15)
PROC: B517YZZ Fluoroscopy of Left Subclavian Vein using Other Contrast (ICD-10-PCS; 2021-09-15)
PROC: B51NYZZ Fluoroscopy of Left Upper Extremity Veins using Other Contrast (ICD-10-PCS; 2021-09-15)
PROC: 5A1D70Z Performance of Urinary Filtration, Intermittent, Less than 6 Hours Per Day (ICD-10-PCS; 2021-09-16)
PROC: 5A1D70Z Performance of Urinary Filtration, Intermittent, Less than 6 Hours Per Day (ICD-10-PCS; 2021-09-18)
PROC: 5A1D70Z Performance of Urinary Filtration, Intermittent, Less than 6 Hours Per Day (ICD-10-PCS; 2021-09-21)
PROC: 5A1D70Z Performance of Urinary Filtration, Intermittent, Less than 6 Hours Per Day (ICD-10-PCS; 2021-09-23)
PROC: 5A1D70Z Performance of Urinary Filtration, Intermittent, Less than 6 Hours Per Day (ICD-10-PCS; 2021-09-25)
DX: A41.50 Gram-negative sepsis, unspecified (principal); U07.1 COVID-19; N18.6 End stage renal disease; J12.82 Pneumonia due to coronavirus disease 2019; E43 Unspecified severe protein-calorie malnutrition; I21.A1 Myocardial infarction type 2; T82.590A Other mechanical complication of surgically created arteriovenous fistula, initial encounter; I16.9 Hypertensive crisis, unspecified; D62 Acute posthemorrhagic anemia; M86.8X7 Other osteomyelitis, ankle and foot; I87.1 Compression of vein; I13.2 Hypertensive heart and chronic kidney disease with heart failure and with stage 5 chronic kidney disease, or end stage renal disease; I50.82 Biventricular heart failure; E78.5 Hyperlipidemia, unspecified; D63.1 Anemia in chronic kidney disease; I25.10 Atherosclerotic heart disease of native coronary artery without angina pectoris; E11.22 Type 2 diabetes mellitus with diabetic chronic kidney disease; E11.51 Type 2 diabetes mellitus with diabetic peripheral angiopathy without gangrene; E11.69 Type 2 diabetes mellitus with other specified complication; E21.2 Other hyperparathyroidism; F17.210 Nicotine dependence, cigarettes, uncomplicated; H40.9 Unspecified glaucoma; H54.7 Unspecified visual loss; K21.9 Gastro-esophageal reflux disease without esophagitis; R04.0 Epistaxis; A49.02 Methicillin resistant Staphylococcus aureus infection, unspecified site; I25.5 Ischemic cardiomyopathy; S91.301A Unspecified open wound, right foot, initial encounter; X58.XXXA Exposure to other specified factors, initial encounter; Y83.8 Other surgical procedures as the cause of abnormal reaction of the patient, or of later complication, without mention of misadventure at the time of the procedure; E87.5 Hyperkalemia; Z68.25 Body mass index [BMI] 25.0-25.9, adult; Z88.1 Allergy status to other antibiotic agents; Z88.5 Allergy status to narcotic agent; Z80.0 Family history of malignant neoplasm of digestive organs; Z79.899 Other long term (current) drug therapy; Z82.49 Family history of ischemic heart disease and other diseases of the circulatory system; Z89.421 Acquired absence of other right toe(s); Z83.3 Family history of diabetes mellitus; Z89.512 Acquired absence of left leg below knee; Z99.2 Dependence on renal dialysis; Z95.5 Presence of coronary angioplasty implant and graft; Y92.89 Other specified places as the place of occurrence of the external cause; Y93.89 Activity, other specified; Y99.8 Other external cause status
CPT/HCPCS: 36415; 36430; 36901; 37248; 71045; 76942; 80048; 80053; 80061; 80202; 82270; 82728; 83036; 83540; 83550; 83735; 83880; 84100; 84443; 84484; 85007; 85025; 85027; 85048; 85610; 85730; 86850; 86900; 86901; 86920; 87040; 87045; 87077; 87081; 87186; 87340; 87426; 87427; 87493; 90935; 93005; 93306; 96365; 96375; 99152; 99153; 99291; G0378; J0696; J2250; J2405; J2543; J3490; J7060; Q9967

== ENCOUNTER 2021-10-01 04:52 | Inpatient (IN) | payer MEDICARE, MEDICAID ==
[~2021-10-01] VITALS: Ht 177.8 cm; Wt 80.9 kg
[2021-10-01 06:56] LABS: Basophils # (auto) 0.1 10 ^3/uL (0-0.2); Basophils % (auto) 0.4 % (0.0-2.0); Eosinophils # (auto) 0.2 10 ^3/uL (0-0.8); Eosinophils % (auto) 1.2 % (0.0-7.0); Monocytes # (auto) 1.1 10 ^3/uL (0-1.3); White Blood Cell 15.2 10^3/uL (4.4-10.8)
[2021-10-01 06:59] LABS: Hematocrit 20.9 % (41.0-53.0); Lymphocytes # (auto) 0.5 10 ^3/uL (0.4-5.4); Lymphocytes % (auto) 3.3 % (10.0-50.0); Mean Corpuscular Hemoglobin 30.2 pg (28.0-32.0); Mean Corpuscular Hgb Conc. 32.5 g/dL (32.0-36.0); Monocytes % (auto) 7.1 % (0.0-12.0); Neutrophils # (auto) 13.3 10 ^3/uL (1.6-8.6); Nucleated Red Blood Cells % 0.2 %; Red Blood Cells 2.25 10^6/uL (4.5-5.90); Red Cell Distribution Width 18.7 % (11.8-14.3)
[2021-10-01 07:03] LABS: Hemoglobin 6.8 g/dL (13.5-17.5)
[2021-10-01 07:05] LABS: Albumin 1.5 g/dL (3.4-5.0); Calcium 9.4 mg/dL (8.5-10.1); Potassium 4.6 mmol/L (3.5-5.1)
[2021-10-01 07:11] LABS: BUN/Creatinine Ratio 9.9; Bilirubin, Total 1.7 mg/dL (0.2-1.0)
[2021-10-01] MEDS ORDERED: HYDROcodone-ACET 5/325MG TAB PO ONE (09:30)
[2021-10-01] MEDS ORDERED: NITROGLYCERIN 0.4 MG SL TAB SL PRN (14:00)
[2021-10-01] MEDS ORDERED: hydrALAZINE HCL 20 MG/ML VL IV PRN (14:00)
[2021-10-01] MEDS ORDERED: diphenhdrAMINE HCL 25 MG CAP PO ONE ×2 (14:00→14:15)
[2021-10-01] MEDS ORDERED: MORPHINE SULFATE INJECTION 2 MG/ML SYRG IV PRN (14:00)
[2021-10-01] MEDS ORDERED: DEXTROSE (50%) 50ML SYRG IV PRN (14:15)
[2021-10-01] MEDS ORDERED: DOCUSATE CALCIUM 240 MG CAP PO PRN (14:30)
[2021-10-01] MEDS: ACCU-CHEK COMFORT CURVE STRIP VI SCH ×2 (15:45→20:24)
[2021-10-01] MEDS ORDERED: diphenhdrAMINE HCL 50 MG/1 ML VL IV ONE (16:00)
[2021-10-01] MEDS: InsuLIN REG 1unit/0.01ml Soln (100units/ml) SC SCH ×2 (16:00→20:00)
[2021-10-01] MEDS: MORPHINE SULFATE INJECTION 2 MG/ML SYRG IV PRN ×2 (16:31→21:45)
[2021-10-01 16:32] LABS: Hematocrit 22.1 % (41.0-53.0); Hemoglobin 7.2 g/dL (13.5-17.5)
[2021-10-01] MEDS: ONDANSETRON HCL 4 MG/2 ML VIAL IV PRN (16:32)
[2021-10-01 17:10] VITALS: BP 84/47
[2021-10-01 18:20] VITALS: BP 79/49
[2021-10-01 18:37] VITALS: BP 96/77
[2021-10-01 22:00] VITALS: BP 129/81
[2021-10-01 22:25] VITALS: BP 91/60
[2021-10-02] VITALS (8 sets, daily range): BP systolic 104–158; BP diastolic 32–82
[2021-10-02] MEDS: ACCU-CHEK COMFORT CURVE STRIP VI SCH ×5 (00:33→17:43)
[2021-10-02] MEDS: MORPHINE SULFATE INJECTION 2 MG/ML SYRG IV PRN ×3 (02:00→15:40)
[2021-10-02] MEDS: InsuLIN REG 1unit/0.01ml Soln (100units/ml) SC SCH ×5 (04:00→18:00)
[2021-10-02 06:57] LABS: Albumin 1.5 g/dL (3.4-5.0); BUN/Creatinine Ratio 10.4; Calcium 9.3 mg/dL (8.5-10.1); INR 1.47 (0.9-1.15); Potassium 5.4 mmol/L (3.5-5.1)
[2021-10-02 06:59] LABS: Basophils # (auto) 0.1 10 ^3/uL (0-0.2); Basophils % (auto) 0.6 % (0.0-2.0); Eosinophils # (auto) 0.2 10 ^3/uL (0-0.8); Lymphocytes # (auto) 0.7 10 ^3/uL (0.4-5.4); Neutrophils # (auto) 13.5 10 ^3/uL (1.6-8.6); Red Blood Cells 2.57 10^6/uL (4.5-5.90)
[2021-10-02 07:00] LABS: Bilirubin, Total 4.3 mg/dL (0.2-1.0); Total Protein 6.3 g/dL (6.4-8.2)
[2021-10-02] MEDS ORDERED: SODIUM CHL 0.9% 1000 ML BAG XX ONE (07:00)
[2021-10-02 07:02] LABS: Hematocrit 23.3 % (41.0-53.0); Hemoglobin 7.7 g/dL (13.5-17.5); Lymphocytes % (auto) 4.6 % (10.0-50.0); Mean Corpuscular Hgb Conc. 33.1 g/dL (32.0-36.0); Mean Corpuscular Volume 90.6 fL (80.0-100.0); Monocytes # (auto) 1.3 10 ^3/uL (0-1.3); Monocytes % (auto) 8.4 % (0.0-12.0); Neutrophils % (auto) 85.4 % (37.0-80.0); Nucleated Red Blood Cells % 0.3 %; Red Cell Distribution Width 19.1 % (11.8-14.3); White Blood Cell 15.9 10^3/uL (4.4-10.8)
[2021-10-02] MEDS: cefTRIAXone 1GM/50ML D5W 50 ML IV SCH (08:45)
[2021-10-02] MEDS: ENOXAPARIN SOD 60 MG/0.6 ML SYRINGE SC SCH (08:45)
[2021-10-02] MEDS: PANTOPRAZOLE 40 MG TAB PO SCH (08:45)
[2021-10-02 14:57] LABS: Hematocrit 26.4 % (41.0-53.0); Hemoglobin 8.6 g/dL (13.5-17.5)
[2021-10-02] MEDS: HYDROmorphone HCL 2 MG/ML VL IV PRN (18:39)
[2021-10-02 19:37] LABS: Hemoglobin 8.3 g/dL (13.5-17.5)
[2021-10-02 19:39] LABS: Hematocrit 24.9 % (41.0-53.0)
[2021-10-02] MEDS ORDERED: EPOETIN ALFA-EPBX 10,000 UNIT/1ML VIAL SC ONE (21:00)
[2021-10-02] MEDS: MUPIROCIN 2% OINT 15gm or 22gm EACHNOSTRI SCH (23:27)
[2021-10-03] MEDS: ACCU-CHEK COMFORT CURVE STRIP VI SCH ×4 (00:11→18:00)
[2021-10-03] MEDS: MORPHINE SULFATE INJECTION 2 MG/ML SYRG IV PRN ×2 (00:12→14:59)
[2021-10-03 00:56] LABS: Hematocrit 24.7 % (41.0-53.0); Hemoglobin 8.2 g/dL (13.5-17.5)
[2021-10-03] MEDS: HYDROmorphone HCL 2 MG/ML VL IV PRN ×2 (04:41→19:55)
[2021-10-03 04:46] VITALS: BP 167/69
[2021-10-03] MEDS: InsuLIN REG 1unit/0.01ml Soln (100units/ml) SC SCH ×4 (06:30→18:04)
[2021-10-03 08:00] VITALS: BP 153/53
[2021-10-03 09:00] VITALS: BP 153/53
[2021-10-03] MEDS: cefTRIAXone 1GM/50ML D5W 50 ML IV SCH (11:04)
[2021-10-03] MEDS: ENOXAPARIN SOD 60 MG/0.6 ML SYRINGE SC SCH (11:04)
[2021-10-03] MEDS: MUPIROCIN 2% OINT 15gm or 22gm EACHNOSTRI SCH ×2 (11:05→22:00)
[2021-10-03] MEDS: PANTOPRAZOLE 40 MG TAB PO SCH (11:05)
[2021-10-03] MEDS: ONDANSETRON HCL 4 MG/2 ML VIAL IV PRN (11:06)
[2021-10-03 12:42] VITALS: BP 162/107
[2021-10-03 13:30] LABS: INR 1.49 (0.9-1.15); Partial Thromboplastin Time 37.3 sec (23.6-33.0)
[2021-10-03] MEDS ORDERED: NIFEdipine ER 30 MG TAB PO ONE (16:45)
[2021-10-03 16:59] VITALS: BP 158/100
[2021-10-03 21:37] VITALS: BP 130/54
[2021-10-03] MEDS: hydrALAZINE HCL 25 MG TAB PO SCH (22:01)
[2021-10-04] MEDS: HYDROmorphone HCL 2 MG/ML VL IV PRN ×6 (00:07→23:05)
[2021-10-04 05:00] VITALS: BP 117/57
[2021-10-04] MEDS: InsuLIN REG 1unit/0.01ml Soln (100units/ml) SC SCH ×4 (06:00→17:56)
[2021-10-04] MEDS: ACCU-CHEK COMFORT CURVE STRIP VI SCH ×4 (06:25→17:57)
[2021-10-04 07:27] LABS: Basophils # (auto) 0.1 10 ^3/uL (0-0.2); Eosinophils # (auto) 0.2 10 ^3/uL (0-0.8); Eosinophils % (auto) 1.3 % (0.0-7.0); Hemoglobin 8.1 g/dL (13.5-17.5); Lymphocytes # (auto) 0.9 10 ^3/uL (0.4-5.4); Mean Corpuscular Volume 91.5 fL (80.0-100.0)
[2021-10-04 07:30] LABS: Hematocrit 24.5 % (41.0-53.0); Lymphocytes % (auto) 6.5 % (10.0-50.0); Mean Corpuscular Hemoglobin 30.3 pg (28.0-32.0); Monocytes # (auto) 1.4 10 ^3/uL (0-1.3); Monocytes % (auto) 10.2 % (0.0-12.0); Neutrophils # (auto) 10.7 10 ^3/uL (1.6-8.6); Nucleated Red Blood Cells % 0.2 %; Red Blood Cells 2.68 10^6/uL (4.5-5.90); Red Cell Distribution Width 19.7 % (11.8-14.3); White Blood Cell 13.3 10^3/uL (4.4-10.8)
[2021-10-04 07:33] LABS: INR 1.65 (0.9-1.15)
[2021-10-04 07:40] LABS: Albumin 1.5 g/dL (3.4-5.0); Calcium 9.1 mg/dL (8.5-10.1); Magnesium 2.8 mg/dL (1.6-2.6); Potassium 5.3 mmol/L (3.5-5.1)
[2021-10-04 07:49] LABS: BUN/Creatinine Ratio 9.1; Bilirubin, Total 2.4 mg/dL (0.2-1.0); Total Protein 7.2 g/dL (6.4-8.2)
[2021-10-04] MEDS: cefTRIAXone 1GM/50ML D5W 50 ML IV SCH (08:43)
[2021-10-04] MEDS: PANTOPRAZOLE 40 MG TAB PO SCH (08:44)
[2021-10-04] MEDS: MUPIROCIN 2% OINT 15gm or 22gm EACHNOSTRI SCH ×2 (08:44→21:34)
[2021-10-04] MEDS: ENOXAPARIN SOD 60 MG/0.6 ML SYRINGE SC SCH (08:44)
[2021-10-04 09:00] VITALS: BP 133/34
[2021-10-04] MEDS: hydrALAZINE HCL 25 MG TAB PO SCH ×2 (09:01→21:34)
[2021-10-04] MEDS: NIFEdipine ER 30 MG TAB PO SCH (09:02)
[2021-10-04] MEDS ORDERED: diphenhdrAMINE HCL 25 MG CAP PO PRN (12:45)
[2021-10-04 13:00] VITALS: BP 116/47
[2021-10-04] MEDS ORDERED: phytonadione 10 MG in SODIUM CHL 0.9% 50 ML IV ONE (13:00)
[2021-10-04] MEDS ORDERED: phytonadione 0 ML ONE (13:40)
[2021-10-04 17:00] VITALS: BP 124/34
[2021-10-04 19:10] LABS: INR 1.69 (0.9-1.15)
[2021-10-04 22:00] VITALS: BP 123/42
[2021-10-05] VITALS (10 sets, daily range): BP systolic 46–147; BP diastolic 29–70
[2021-10-05] MEDS: HYDROmorphone HCL 2 MG/ML VL IV PRN ×4 (03:11→22:07)
[2021-10-05] MEDS: InsuLIN REG 1unit/0.01ml Soln (100units/ml) SC SCH ×4 (06:00→17:47)
[2021-10-05] MEDS: ACCU-CHEK COMFORT CURVE STRIP VI SCH ×4 (06:10→17:48)
[2021-10-05 06:52] LABS: Basophils # (auto) 0.1 10 ^3/uL (0-0.2); Basophils % (auto) 0.5 % (0.0-2.0); Eosinophils # (auto) 0.2 10 ^3/uL (0-0.8); Eosinophils % (auto) 1.5 % (0.0-7.0); Hematocrit 25.5 % (41.0-53.0); Hemoglobin 8.3 g/dL (13.5-17.5); Lymphocytes # (auto) 0.6 10 ^3/uL (0.4-5.4); Lymphocytes % (auto) 4.3 % (10.0-50.0); Mean Corpuscular Hemoglobin 29.7 pg (28.0-32.0); Mean Corpuscular Hgb Conc. 32.7 g/dL (32.0-36.0); Monocytes # (auto) 1.3 10 ^3/uL (0-1.3); Monocytes % (auto) 10.1 % (0.0-12.0); Neutrophils % (auto) 83.6 % (37.0-80.0); Nucleated Red Blood Cells % 0.1 %; Red Cell Distribution Width 19.7 % (11.8-14.3); White Blood Cell 13.2 10^3/uL (4.4-10.8)
[2021-10-05] MEDS ORDERED: SODIUM CHL 0.9% 1000 ML BAG XX ONE (07:00)
[2021-10-05 07:09] LABS: INR 1.54 (0.9-1.15)
[2021-10-05 07:21] LABS: Albumin 1.4 g/dL (3.4-5.0); BUN/Creatinine Ratio 9.5; Bilirubin, Total 1.9 mg/dL (0.2-1.0); Calcium 8.8 mg/dL (8.5-10.1)
[2021-10-05 08:08] LABS: Potassium 5.6 mmol/L (3.5-5.1)
[2021-10-05] MEDS ORDERED: IODIXANOL 320MG/ML 100ML BTL IV ONE ×3 (08:20→10:20)
[2021-10-05] MEDS ORDERED: LIDOCAINE 2%HCL (LOCAL ANESTH.) INJ 20ML MDV ONE (08:20)
[2021-10-05] MEDS ORDERED: ANGIOMAX 250 MG VIAL IV ONE (08:39)
[2021-10-05] MEDS ORDERED: HEPARIN SODIUM (PORCINE) 5000 UNITS/ML 1ML VIAL ONE (08:39)
[2021-10-05] MEDS ORDERED: fentaNYL CITRATE 100 MCG/2 ML VL ONE (08:40)
[2021-10-05] MEDS ORDERED: VERAPAMIL 2.5MG/ML INJ 2ML VIAL IV ONE (08:40)
[2021-10-05] MEDS ORDERED: MIDAZOLAM HCL 2MG/2ML 2ml VIAL (1mg/ml) ONE (08:40)
[2021-10-05] MEDS ORDERED: SODIUM CHL 0.9% 50 ML ONE ×2 (08:41→08:46)
[2021-10-05] MEDS ORDERED: NITROGLYCERIN 5MG/ML 10ML VIAL IV ONE (08:45)
[2021-10-05] MEDS: cefTRIAXone 1GM/50ML D5W 50 ML IV SCH (08:52)
[2021-10-05] MEDS ORDERED: SODIUM BICARBONATE 8.4 % INJ 50ML VIAL IV ONE ×2 (09:15→09:22)
[2021-10-05] MEDS: PANTOPRAZOLE 40 MG TAB PO SCH (09:59)
[2021-10-05] MEDS: hydrALAZINE HCL 25 MG TAB PO SCH ×2 (09:59→21:56)
[2021-10-05] MEDS: MUPIROCIN 2% OINT 15gm or 22gm EACHNOSTRI SCH ×2 (09:59→22:07)
[2021-10-05] MEDS: NIFEdipine ER 30 MG TAB PO SCH (09:59)
[2021-10-05] MEDS: ENOXAPARIN SOD 60 MG/0.6 ML SYRINGE SC SCH (09:59)
[2021-10-05] MEDS ORDERED: CLOPIDOGREL 300 MG TAB ONE (10:47)
[2021-10-05] MEDS ORDERED: ASPirin 325 MG TAB ONE (10:48)
[2021-10-05] MEDS ORDERED: MIDODRINE HCL 10 MG TAB PO ONE (12:45)
[2021-10-05] MEDS ORDERED: ALBUMIN 25% 100 ML IV ONE (12:45)
[2021-10-05] MEDS: HYDROCORTONE 1% TOPICAL CREAM 30 GM TUBE TOP SCH ×2 (13:00→22:08)
[2021-10-05] MEDS: NYSTATIN-TRIAMCINOLONE TOPICAL CRE 15GM TOP SCH ×2 (13:01→22:08)
[2021-10-05] MEDS ORDERED: IVERMECTIN 3 MG TAB PO ONE (18:45)
[2021-10-05] MEDS ORDERED: EPOETIN ALFA-EPBX 10,000 UNIT/1ML VIAL SC ONE (21:00)
[2021-10-05] MEDS ORDERED: PERMETHRIN 5 % TOPICAL CREAM 60GM TOP ONE (22:00)
[2021-10-06] MEDS: ACCU-CHEK COMFORT CURVE STRIP VI SCH ×5 (00:02→23:34)
[2021-10-06] MEDS: HYDROmorphone HCL 2 MG/ML VL IV PRN ×5 (02:15→21:50)
[2021-10-06 05:07] VITALS: BP 151/67
[2021-10-06] MEDS: InsuLIN REG 1unit/0.01ml Soln (100units/ml) SC SCH ×5 (06:00→23:34)
[2021-10-06 07:28] LABS: Basophils # (auto) 0.1 10 ^3/uL (0-0.2); Eosinophils # (auto) 0.3 10 ^3/uL (0-0.8); Hemoglobin 7.5 g/dL (13.5-17.5); Lymphocytes # (auto) 0.8 10 ^3/uL (0.4-5.4); Neutrophils # (auto) 10.7 10 ^3/uL (1.6-8.6)
[2021-10-06 07:35] LABS: Basophils % (auto) 0.7 % (0.0-2.0); Eosinophils % (auto) 2.1 % (0.0-7.0); Hematocrit 22.7 % (41.0-53.0); Lymphocytes % (auto) 6.1 % (10.0-50.0); Mean Corpuscular Hemoglobin 30.6 pg (28.0-32.0); Mean Corpuscular Hgb Conc. 33.3 g/dL (32.0-36.0); Mean Corpuscular Volume 91.8 fL (80.0-100.0); Monocytes # (auto) 1.2 10 ^3/uL (0-1.3); Monocytes % (auto) 9.2 % (0.0-12.0); Neutrophils % (auto) 81.9 % (37.0-80.0); Nucleated Red Blood Cells % 0.2 %; Red Blood Cells 2.47 10^6/uL (4.5-5.90)
[2021-10-06 07:42] LABS: BUN/Creatinine Ratio 8.4; Calcium 8.7 mg/dL (8.5-10.1); Potassium 5.2 mmol/L (3.5-5.1)
[2021-10-06 07:47] LABS: INR 1.51 (0.9-1.15); Partial Thromboplastin Time 43.7 sec (23.6-33.0); Red Cell Distribution Width 20.8 % (11.8-14.3)
[2021-10-06] MEDS: cefTRIAXone 1GM/50ML D5W 50 ML IV SCH (08:19)
[2021-10-06] MEDS: ASPirin 81 mg TAB PO SCH (10:00)
[2021-10-06] MEDS: CLOPIDOGREL BISULFATE 75 MG TAB PO SCH (10:00)
[2021-10-06] MEDS: HYDROCORTONE 1% TOPICAL CREAM 30 GM TUBE TOP SCH ×2 (10:00→23:32)
[2021-10-06] MEDS: NIFEdipine ER 30 MG TAB PO SCH (10:00)
[2021-10-06] MEDS: PANTOPRAZOLE 40 MG TAB PO SCH (10:00)
[2021-10-06] MEDS: hydrALAZINE HCL 25 MG TAB PO SCH (10:00)
[2021-10-06] MEDS: NYSTATIN-TRIAMCINOLONE TOPICAL CRE 15GM TOP SCH (10:00)
[2021-10-06] MEDS: MUPIROCIN 2% OINT 15gm or 22gm EACHNOSTRI SCH ×2 (10:04→23:31)
[2021-10-06] MEDS ORDERED: VANCOMYCIN PER PHARMACY 0 MG IV SCH (16:00)
[2021-10-06] MEDS ORDERED: VANCOMYCIN 1GM/250ML 250 ML IV ONE (16:15)
[2021-10-06 17:00] VITALS: BP 113/39
[2021-10-06] MEDS: CEFEPIME 1 GM in NS 0.9% 50 ML IV SCH (17:59)
[2021-10-06 22:00] VITALS: BP 96/76
[2021-10-06] MEDS: CARVEDILOL 3.125 MG TAB PO SCH (22:00)
[2021-10-06] MEDS: ATORVASTATIN 20 MG TAB PO SCH (23:24)
[2021-10-06] MEDS: SACUBITRIL-VALSARTAN 24mg/26mg TAB PO SCH (23:25)
[2021-10-07] MEDS: HYDROmorphone HCL 2 MG/ML VL IV PRN ×5 (02:13→21:42)
[2021-10-07] MEDS: ACCU-CHEK COMFORT CURVE STRIP VI SCH ×4 (04:59→23:45)
[2021-10-07 05:00] VITALS: BP 126/54
[2021-10-07] MEDS: InsuLIN REG 1unit/0.01ml Soln (100units/ml) SC SCH ×4 (06:00→23:45)
[2021-10-07] MEDS ORDERED: SODIUM CHL 0.9% 1000 ML BAG XX ONE (07:00)
[2021-10-07 09:00] VITALS: BP 165/64
[2021-10-07] MEDS: ASPirin 81 mg TAB PO SCH (10:00)
[2021-10-07] MEDS: CLOPIDOGREL BISULFATE 75 MG TAB PO SCH (10:00)
[2021-10-07] MEDS: MUPIROCIN 2% OINT 15gm or 22gm EACHNOSTRI SCH (10:31)
[2021-10-07] MEDS: CARVEDILOL 3.125 MG TAB PO SCH ×2 (10:36→23:13)
[2021-10-07] MEDS: SACUBITRIL-VALSARTAN 24mg/26mg TAB PO SCH ×2 (10:36→23:14)
[2021-10-07] MEDS: DAPAGLIFLOZIN 5 MG TAB PO SCH (10:36)
[2021-10-07] MEDS: HYDROCORTONE 1% TOPICAL CREAM 30 GM TUBE TOP SCH ×2 (10:38→21:42)
[2021-10-07] MEDS: PANTOPRAZOLE 40 MG TAB PO SCH (10:38)
[2021-10-07] MEDS: NIFEdipine ER 30 MG TAB PO SCH (10:38)
[2021-10-07 12:03] LABS: INR 1.38 (0.9-1.15)
[2021-10-07 12:45] LABS: Mean Corpuscular Hemoglobin 29.5 pg (28.0-32.0)
[2021-10-07 12:46] LABS: Hematocrit 26.1 % (41.0-53.0); Hemoglobin 7.9 g/dL (13.5-17.5); Mean Corpuscular Hgb Conc. 30.4 g/dL (32.0-36.0); Red Blood Cells 2.69 10^6/uL (4.5-5.90)
[2021-10-07 12:59] LABS: Red Cell Distribution Width 22.3 % (11.8-14.3)
[2021-10-07 13:00] VITALS: BP 142/95
[2021-10-07 13:00] LABS: Basophils % (manual) 0 (0.0-2.0); Blast Cells 0; Metamyelocytes % 0; Myelocytes % 0; Promyelocytes % 0; Reactive Lymphocytes 0
[2021-10-07 13:16] LABS: Band Neutrophils % (manual) 5; Eosinophils % (manual) 1 (0-7); Lymphocytes % (manual) 17 (10.0-50.0); Monocytes % (manual) 1 (0-12)
[2021-10-07 13:17] LABS: Albumin 1.5 g/dL (3.4-5.0); Calcium 8.8 mg/dL (8.5-10.1)
[2021-10-07 13:25] LABS: BUN/Creatinine Ratio 8.8; Bilirubin, Total 1.7 mg/dL (0.2-1.0); Total Protein 6.6 g/dL (6.4-8.2)
[2021-10-07 13:32] LABS: Potassium 5.7 mmol/L (3.5-5.1)
[2021-10-07] MEDS: ALPRAZolam 0.25 MG TAB PO PRN (14:53)
[2021-10-07 17:00] VITALS: BP 145/44
[2021-10-07] MEDS: CEFEPIME 1 GM in NS 0.9% 50 ML IV SCH (18:36)
[2021-10-07] MEDS: ATORVASTATIN 20 MG TAB PO SCH (21:42)
[2021-10-07 22:00] VITALS: BP 105/74
[2021-10-08] MEDS: HYDROmorphone HCL 2 MG/ML VL IV PRN ×5 (02:18→21:54)
[2021-10-08 05:00] VITALS: BP 117/45
[2021-10-08] MEDS: InsuLIN REG 1unit/0.01ml Soln (100units/ml) SC SCH ×3 (06:00→18:00)
[2021-10-08] MEDS: ACCU-CHEK COMFORT CURVE STRIP VI SCH ×3 (06:17→18:53)
[2021-10-08 06:39] LABS: Basophils # (auto) 0.1 10 ^3/uL (0-0.2); Basophils % (auto) 0.6 % (0.0-2.0); Eosinophils # (auto) 0.2 10 ^3/uL (0-0.8); Hemoglobin 7.6 g/dL (13.5-17.5); Lymphocytes # (auto) 0.9 10 ^3/uL (0.4-5.4); Neutrophils # (auto) 9.4 10 ^3/uL (1.6-8.6)
[2021-10-08 06:45] LABS: Eosinophils % (auto) 1.7 % (0.0-7.0); Hematocrit 23.7 % (41.0-53.0); Mean Corpuscular Hemoglobin 30.1 pg (28.0-32.0); Mean Corpuscular Hgb Conc. 32.1 g/dL (32.0-36.0); Mean Corpuscular Volume 93.9 fL (80.0-100.0); Monocytes # (auto) 0.8 10 ^3/uL (0-1.3); Monocytes % (auto) 6.9 % (0.0-12.0); Neutrophils % (auto) 82.8 % (37.0-80.0); Nucleated Red Blood Cells % 0.2 %; Red Blood Cells 2.52 10^6/uL (4.5-5.90); White Blood Cell 11.3 10^3/uL (4.4-10.8)
[2021-10-08 06:49] LABS: Red Cell Distribution Width 21.4 % (11.8-14.3)
[2021-10-08] MEDS ORDERED: SODIUM CHL 0.9% 1000 ML BAG XX ONE (08:00)
[2021-10-08 08:10] LABS: INR 1.54 (0.9-1.15); Partial Thromboplastin Time 35.3 sec (23.6-33.0)
[2021-10-08 09:00] VITALS: BP 114/75
[2021-10-08] MEDS: CLOPIDOGREL BISULFATE 75 MG TAB PO SCH (10:00)
[2021-10-08] MEDS: ASPirin 81 mg TAB PO SCH (10:00)
[2021-10-08] MEDS: SACUBITRIL-VALSARTAN 24mg/26mg TAB PO SCH ×2 (10:53→22:36)
[2021-10-08] MEDS: DAPAGLIFLOZIN 5 MG TAB PO SCH (10:53)
[2021-10-08] MEDS: CARVEDILOL 3.125 MG TAB PO SCH ×2 (10:53→22:37)
[2021-10-08] MEDS: NIFEdipine ER 30 MG TAB PO SCH (10:54)
[2021-10-08] MEDS: PANTOPRAZOLE 40 MG TAB PO SCH (10:54)
[2021-10-08] MEDS: HYDROCORTONE 1% TOPICAL CREAM 30 GM TUBE TOP SCH ×2 (10:54→22:00)
[2021-10-08 13:00] VITALS: BP 96/41
[2021-10-08] MEDS ORDERED: VANCOMYCIN 1GM/250ML 250 ML IV ONE (13:00)
[2021-10-08] MEDS: ALPRAZolam 0.25 MG TAB PO PRN (14:56)
[2021-10-08 17:00] VITALS: BP 120/67
[2021-10-08] MEDS: CEFEPIME 1 GM in NS 0.9% 50 ML IV SCH (17:17)
[2021-10-08 22:00] VITALS: BP 128/41
[2021-10-08] MEDS: ATORVASTATIN 20 MG TAB PO SCH (22:37)
[2021-10-09] VITALS (8 sets, daily range): BP systolic 101–165; BP diastolic 35–90
[2021-10-09] MEDS: ACCU-CHEK COMFORT CURVE STRIP VI SCH ×5 (00:40→23:28)
[2021-10-09] MEDS: InsuLIN REG 1unit/0.01ml Soln (100units/ml) SC SCH ×5 (00:43→23:28)
[2021-10-09] MEDS: HYDROmorphone HCL 2 MG/ML VL IV PRN ×5 (02:51→20:01)
[2021-10-09 06:01] LABS: Basophils # (auto) 0.1 10 ^3/uL (0-0.2); Eosinophils # (auto) 0.3 10 ^3/uL (0-0.8); Eosinophils % (auto) 2.1 % (0.0-7.0); Hemoglobin 8.1 g/dL (13.5-17.5); Monocytes # (auto) 0.8 10 ^3/uL (0-1.3)
[2021-10-09 06:04] LABS: Basophils % (auto) 0.8 % (0.0-2.0); Hematocrit 25.4 % (41.0-53.0); Lymphocytes # (auto) 0.8 10 ^3/uL (0.4-5.4); Lymphocytes % (auto) 6.2 % (10.0-50.0); Mean Corpuscular Hemoglobin 30.3 pg (28.0-32.0); Mean Corpuscular Hgb Conc. 31.9 g/dL (32.0-36.0); Mean Corpuscular Volume 94.9 fL (80.0-100.0); Monocytes % (auto) 6.4 % (0.0-12.0); Neutrophils # (auto) 10.8 10 ^3/uL (1.6-8.6); Neutrophils % (auto) 84.5 % (37.0-80.0); Nucleated Red Blood Cells % 0.3 %; Red Blood Cells 2.68 10^6/uL (4.5-5.90); White Blood Cell 12.8 10^3/uL (4.4-10.8)
[2021-10-09 06:08] LABS: Red Cell Distribution Width 21.1 % (11.8-14.3)
[2021-10-09 06:22] LABS: BUN/Creatinine Ratio 7.7; Calcium 8.8 mg/dL (8.5-10.1); Potassium 5.1 mmol/L (3.5-5.1)
[2021-10-09 06:26] LABS: INR 1.52 (0.9-1.15)
[2021-10-09] MEDS: SACUBITRIL-VALSARTAN 24mg/26mg TAB PO SCH ×2 (09:27→21:39)
[2021-10-09] MEDS: PANTOPRAZOLE 40 MG TAB PO SCH (09:27)
[2021-10-09] MEDS: ASPirin 81 mg TAB PO SCH (09:27)
[2021-10-09] MEDS: HYDROCORTONE 1% TOPICAL CREAM 30 GM TUBE TOP SCH ×2 (09:31→21:40)
[2021-10-09] MEDS: CARVEDILOL 3.125 MG TAB PO SCH ×2 (10:00→21:39)
[2021-10-09] MEDS ORDERED: MEROPENEM 500MG IVPB 50 ML IV ONE (13:30)
[2021-10-09] MEDS: CLOPIDOGREL BISULFATE 75 MG TAB PO SCH (13:44)
[2021-10-09] MEDS: NIFEdipine ER 30 MG TAB PO SCH (13:45)
[2021-10-09] MEDS: LOPERAMIDE 1 mg/7.5ml ORAL soln PO PRN (13:46)
[2021-10-09] MEDS: ATORVASTATIN 20 MG TAB PO SCH (21:39)
[2021-10-09] MEDS: ALPRAZolam 0.25 MG TAB PO PRN (21:40)
[2021-10-10] MEDS: HYDROmorphone HCL 2 MG/ML VL IV PRN ×6 (00:18→22:06)
[2021-10-10 04:56] VITALS: BP 110/55
[2021-10-10] MEDS: ACCU-CHEK COMFORT CURVE STRIP VI SCH ×4 (05:21→23:54)
[2021-10-10] MEDS: InsuLIN REG 1unit/0.01ml Soln (100units/ml) SC SCH ×4 (05:22→23:55)
[2021-10-10] MEDS: PANTOPRAZOLE 40 MG TAB PO SCH (08:57)
[2021-10-10] MEDS: SACUBITRIL-VALSARTAN 24mg/26mg TAB PO SCH ×2 (08:57→22:04)
[2021-10-10] MEDS: CLOPIDOGREL BISULFATE 75 MG TAB PO SCH (08:57)
[2021-10-10] MEDS: ASPirin 81 mg TAB PO SCH (08:57)
[2021-10-10] MEDS: NIFEdipine ER 30 MG TAB PO SCH (08:57)
[2021-10-10 09:00] VITALS: BP 107/59
[2021-10-10] MEDS: HYDROCORTONE 1% TOPICAL CREAM 30 GM TUBE TOP SCH ×2 (09:03→22:29)
[2021-10-10] MEDS: CARVEDILOL 3.125 MG TAB PO SCH ×2 (10:00→22:00)
[2021-10-10 13:00] VITALS: BP 96/55
[2021-10-10 17:00] VITALS: BP 124/71
[2021-10-10] MEDS: MEROPENEM 500MG IVPB 50 ML IV SCH (17:20)
[2021-10-10 20:30] VITALS: BP 103/57
[2021-10-10 22:00] VITALS: BP 103/57
[2021-10-10] MEDS: ATORVASTATIN 20 MG TAB PO SCH (22:04)
[2021-10-10] MEDS: LOPERAMIDE 1 mg/7.5ml ORAL soln PO PRN (22:07)
[2021-10-11] MEDS: HYDROmorphone HCL 2 MG/ML VL IV PRN ×5 (02:18→20:07)
[2021-10-11 05:00] VITALS: BP 145/71
[2021-10-11] MEDS: ACCU-CHEK COMFORT CURVE STRIP VI SCH ×3 (05:43→17:47)
[2021-10-11] MEDS: InsuLIN REG 1unit/0.01ml Soln (100units/ml) SC SCH ×3 (05:49→17:47)
[2021-10-11 06:42] LABS: Basophils # (auto) 0.1 10 ^3/uL (0-0.2); Basophils % (auto) 0.6 % (0.0-2.0); Eosinophils # (auto) 0.4 10 ^3/uL (0-0.8); Eosinophils % (auto) 2.7 % (0.0-7.0); Hematocrit 27.1 % (41.0-53.0); Hemoglobin 8.8 g/dL (13.5-17.5); Lymphocytes % (auto) 7.2 % (10.0-50.0); Mean Corpuscular Hemoglobin 30.3 pg (28.0-32.0); Mean Corpuscular Hgb Conc. 32.4 g/dL (32.0-36.0); Mean Corpuscular Volume 93.6 fL (80.0-100.0); Monocytes # (auto) 0.8 10 ^3/uL (0-1.3); Monocytes % (auto) 5.6 % (0.0-12.0); Neutrophils # (auto) 12.3 10 ^3/uL (1.6-8.6); Neutrophils % (auto) 83.9 % (37.0-80.0); Nucleated Red Blood Cells % 0.1 %; White Blood Cell 14.6 10^3/uL (4.4-10.8)
[2021-10-11 06:49] LABS: Red Cell Distribution Width 21.3 % (11.8-14.3)
[2021-10-11 07:13] LABS: BUN/Creatinine Ratio 8.8; Potassium 5.5 mmol/L (3.5-5.1)
[2021-10-11] MEDS: CLOPIDOGREL BISULFATE 75 MG TAB PO SCH (08:15)
[2021-10-11 09:00] VITALS: BP 148/90
[2021-10-11] MEDS: ASPirin 81 mg TAB PO SCH (11:02)
[2021-10-11] MEDS: CARVEDILOL 3.125 MG TAB PO SCH ×2 (11:03→22:20)
[2021-10-11] MEDS: SACUBITRIL-VALSARTAN 24mg/26mg TAB PO SCH ×2 (11:03→22:20)
[2021-10-11] MEDS: HYDROCORTONE 1% TOPICAL CREAM 30 GM TUBE TOP SCH ×2 (11:04→22:21)
[2021-10-11] MEDS: PANTOPRAZOLE 40 MG TAB PO SCH (11:04)
[2021-10-11] MEDS: NIFEdipine ER 30 MG TAB PO SCH (11:04)
[2021-10-11 13:00] VITALS: BP 91/37
[2021-10-11 17:23] VITALS: BP 96/75
[2021-10-11] MEDS: MEROPENEM 500MG IVPB 50 ML IV SCH (17:43)
[2021-10-11 20:00] VITALS: BP 133/76
[2021-10-11 22:00] VITALS: BP 133/76
[2021-10-11] MEDS: ATORVASTATIN 20 MG TAB PO SCH (22:21)
[2021-10-12] MEDS: HYDROmorphone HCL 2 MG/ML VL IV PRN ×6 (00:29→21:47)
[2021-10-12] MEDS: ACCU-CHEK COMFORT CURVE STRIP VI SCH ×5 (00:29→23:48)
[2021-10-12] MEDS: InsuLIN REG 1unit/0.01ml Soln (100units/ml) SC SCH ×5 (00:30→23:50)
[2021-10-12 05:16] VITALS: BP 145/85
[2021-10-12 07:58] LABS: Basophils # (auto) 0.1 10 ^3/uL (0-0.2); Basophils % (auto) 0.5 % (0.0-2.0); Eosinophils # (auto) 0.3 10 ^3/uL (0-0.8); Eosinophils % (auto) 2.2 % (0.0-7.0); Hematocrit 27.4 % (41.0-53.0); Hemoglobin 8.7 g/dL (13.5-17.5); Lymphocytes # (auto) 0.7 10 ^3/uL (0.4-5.4); Lymphocytes % (auto) 4.7 % (10.0-50.0); Mean Corpuscular Hemoglobin 30.1 pg (28.0-32.0); Mean Corpuscular Hgb Conc. 31.7 g/dL (32.0-36.0); Mean Corpuscular Volume 94.9 fL (80.0-100.0); Monocytes # (auto) 0.8 10 ^3/uL (0-1.3); Monocytes % (auto) 5.2 % (0.0-12.0); Neutrophils % (auto) 87.4 % (37.0-80.0); Nucleated Red Blood Cells % 0.1 %; Red Blood Cells 2.89 10^6/uL (4.5-5.90); Red Cell Distribution Width 21.4 % (11.8-14.3); White Blood Cell 14.9 10^3/uL (4.4-10.8)
[2021-10-12 08:09] LABS: INR 1.36 (0.9-1.15)
[2021-10-12 08:19] LABS: BUN/Creatinine Ratio 9.4; Calcium 8.6 mg/dL (8.5-10.1)
[2021-10-12 08:30] VITALS: BP 115/56
[2021-10-12] MEDS: CARVEDILOL 3.125 MG TAB PO SCH ×2 (10:56→21:46)
[2021-10-12] MEDS: ASPirin 81 mg TAB PO SCH (10:56)
[2021-10-12] MEDS: SACUBITRIL-VALSARTAN 24mg/26mg TAB PO SCH ×2 (10:56→21:46)
[2021-10-12] MEDS: CLOPIDOGREL BISULFATE 75 MG TAB PO SCH (10:57)
[2021-10-12] MEDS: NIFEdipine ER 30 MG TAB PO SCH (10:57)
[2021-10-12] MEDS: PANTOPRAZOLE 40 MG TAB PO SCH (10:58)
[2021-10-12] MEDS: HYDROCORTONE 1% TOPICAL CREAM 30 GM TUBE TOP SCH ×2 (10:58→21:48)
[2021-10-12 12:30] VITALS: BP 163/71
[2021-10-12] MEDS ORDERED: VANCOMYCIN 750mg/250ml 250 ML IV ONE (16:00)
[2021-10-12 17:00] VITALS: BP 103/71
[2021-10-12] MEDS: MEROPENEM 500MG IVPB 50 ML IV SCH (18:25)
[2021-10-12] MEDS: ALPRAZolam 0.25 MG TAB PO PRN (20:13)
[2021-10-12] MEDS: ATORVASTATIN 20 MG TAB PO SCH (21:46)
[2021-10-12 22:00] VITALS: BP 134/63
[2021-10-13 05:00] VITALS: BP 164/82
[2021-10-13] MEDS: HYDROmorphone HCL 2 MG/ML VL IV PRN ×5 (05:14→23:29)
[2021-10-13] MEDS: ACCU-CHEK COMFORT CURVE STRIP VI SCH ×4 (05:21→23:29)
[2021-10-13] MEDS: InsuLIN REG 1unit/0.01ml Soln (100units/ml) SC SCH ×4 (05:22→23:29)
[2021-10-13] MEDS ORDERED: POVIDONE IODINE 10 % TOPICAL OINT 30GM TOP ONE (07:03)
[2021-10-13 07:39] LABS: Basophils # (auto) 0.1 10 ^3/uL (0-0.2); Basophils % (auto) 0.4 % (0.0-2.0); Eosinophils # (auto) 0.5 10 ^3/uL (0-0.8); Eosinophils % (auto) 3.4 % (0.0-7.0); Hematocrit 26.1 % (41.0-53.0); Hemoglobin 8.5 g/dL (13.5-17.5); Lymphocytes # (auto) 0.8 10 ^3/uL (0.4-5.4); Lymphocytes % (auto) 5.8 % (10.0-50.0); Mean Corpuscular Hemoglobin 30.8 pg (28.0-32.0); Mean Corpuscular Hgb Conc. 32.6 g/dL (32.0-36.0); Mean Corpuscular Volume 94.5 fL (80.0-100.0); Monocytes % (auto) 7.2 % (0.0-12.0); Neutrophils # (auto) 11.4 10 ^3/uL (1.6-8.6); Neutrophils % (auto) 83.2 % (37.0-80.0); Nucleated Red Blood Cells % 0.1 %; Red Blood Cells 2.77 10^6/uL (4.5-5.90); Red Cell Distribution Width 22.5 % (11.8-14.3); White Blood Cell 13.7 10^3/uL (4.4-10.8)
[2021-10-13 07:50] LABS: INR 1.41 (0.9-1.15); Partial Thromboplastin Time 34.5 sec (23.6-33.0)
[2021-10-13 08:06] LABS: Potassium 5.4 mmol/L (3.5-5.1)
[2021-10-13 08:18] LABS: Albumin 1.4 g/dL (3.4-5.0); BUN/Creatinine Ratio 8.9; Bilirubin, Total 1.4 mg/dL (0.2-1.0); Calcium 8.1 mg/dL (8.5-10.1); Total Protein 6.6 g/dL (6.4-8.2)
[2021-10-13 08:30] VITALS: BP 142/80
[2021-10-13 09:00] VITALS: BP 116/37
[2021-10-13] MEDS: SACUBITRIL-VALSARTAN 24mg/26mg TAB PO SCH ×2 (09:54→23:40)
[2021-10-13] MEDS: PANTOPRAZOLE 40 MG TAB PO SCH (09:55)
[2021-10-13] MEDS: CLOPIDOGREL BISULFATE 75 MG TAB PO SCH (10:00)
[2021-10-13] MEDS: HYDROCORTONE 1% TOPICAL CREAM 30 GM TUBE TOP SCH ×2 (10:00→22:50)
[2021-10-13] MEDS: ASPirin 81 mg TAB PO SCH (10:00)
[2021-10-13] MEDS: NIFEdipine ER 30 MG TAB PO SCH (11:55)
[2021-10-13] MEDS: CARVEDILOL 3.125 MG TAB PO SCH ×2 (11:56→22:00)
[2021-10-13 13:00] VITALS: BP 160/72
[2021-10-13] MEDS ORDERED: MIDAZOLAM HCL 2MG/2ML 2ml VIAL (1mg/ml) ONE (14:06)
[2021-10-13] MEDS ORDERED: fentaNYL CITRATE 5 ML ONE (14:06)
[2021-10-13] MEDS ORDERED: KETAMINE HCL 10 ML ONE (14:06)
[2021-10-13] MEDS ORDERED: LIDOCAINE 2% (LOCAL ANESTH.) PF 5ml SDV ONE (14:09)
[2021-10-13] MEDS ORDERED: GLYCOPYRROLATE 0.2 MG/ML 1ML VIAL ONE (14:09)
[2021-10-13] MEDS ORDERED: ETOMIDATE (2MG/ML) 20ML VIAL IV ONE (14:09)
[2021-10-13] MEDS ORDERED: ONDANSETRON HCL 4 MG/2 ML VIAL ONE (14:09)
[2021-10-13] MEDS ORDERED: SUGAMMADEX 200mg/2ml Vial (100MG/ML) IV ONE (14:15)
[2021-10-13] MEDS ORDERED: HYDROmorphone HCL 2 MG/ML VL ONE (15:19)
[2021-10-13] MEDS ORDERED: SODIUM ZIRCONIUM CYCL 10 GM PAK PO ONE (15:30)
[2021-10-13] MEDS ORDERED: LIDOCAINE HCL 2% TOP JELLY 5ML TOP ONE (16:11)
[2021-10-13] MEDS ORDERED: ACCU-CHEK COMFORT CURVE STRIP VI ONE (16:30)
[2021-10-13] MEDS ORDERED: ONDANSETRON HCL 4 MG/2 ML VIAL IV PRN (16:30)
[2021-10-13] MEDS ORDERED: HYDROmorphone HCL 2 MG/ML VL IV PRN (16:30)
[2021-10-13] MEDS: MEROPENEM 500MG IVPB 50 ML IV SCH (18:05)
[2021-10-13 22:08] VITALS: BP 104/46
[2021-10-13] MEDS: ATORVASTATIN 20 MG TAB PO SCH (22:48)
[2021-10-14] MEDS: HYDROmorphone HCL 2 MG/ML VL IV PRN ×4 (04:38→21:47)
[2021-10-14 05:00] VITALS: BP 152/65
[2021-10-14] MEDS: ACCU-CHEK COMFORT CURVE STRIP VI SCH ×3 (05:51→17:14)
[2021-10-14] MEDS: InsuLIN REG 1unit/0.01ml Soln (100units/ml) SC SCH ×3 (05:51→17:15)
[2021-10-14 06:03] LABS: Basophils # (auto) 0 10 ^3/uL (0-0.2); Basophils % (auto) 0.3 % (0.0-2.0); Eosinophils # (auto) 0 10 ^3/uL (0-0.8); Eosinophils % (auto) 0.1 % (0.0-7.0); Hematocrit 26.8 % (41.0-53.0); Hemoglobin 8.7 g/dL (13.5-17.5); Lymphocytes # (auto) 0.8 10 ^3/uL (0.4-5.4); Lymphocytes % (auto) 7.7 % (10.0-50.0); Mean Corpuscular Hemoglobin 31.4 pg (28.0-32.0); Mean Corpuscular Hgb Conc. 32.4 g/dL (32.0-36.0); Mean Corpuscular Volume 96.7 fL (80.0-100.0); Monocytes # (auto) 0.6 10 ^3/uL (0-1.3); Monocytes % (auto) 6.3 % (0.0-12.0); Neutrophils # (auto) 8.7 10 ^3/uL (1.6-8.6); Neutrophils % (auto) 85.6 % (37.0-80.0); Nucleated Red Blood Cells % 0.2 %; Red Blood Cells 2.77 10^6/uL (4.5-5.90); White Blood Cell 10.2 10^3/uL (4.4-10.8)
[2021-10-14 06:18] LABS: Red Cell Distribution Width 23.1 % (11.8-14.3)
[2021-10-14] MEDS ORDERED: SODIUM CHL 0.9% 1000 ML BAG XX ONE (07:00)
[2021-10-14 08:45] VITALS: BP 107/71
[2021-10-14] MEDS: SACUBITRIL-VALSARTAN 24mg/26mg TAB PO SCH ×2 (10:00→22:04)
[2021-10-14] MEDS: NIFEdipine ER 30 MG TAB PO SCH (10:00)
[2021-10-14] MEDS: CARVEDILOL 3.125 MG TAB PO SCH ×2 (10:00→22:03)
[2021-10-14] MEDS: ASPirin 81 mg TAB PO SCH (11:30)
[2021-10-14] MEDS: CLOPIDOGREL BISULFATE 75 MG TAB PO SCH (11:31)
[2021-10-14] MEDS: HYDROCORTONE 1% TOPICAL CREAM 30 GM TUBE TOP SCH ×2 (11:31→21:23)
[2021-10-14] MEDS: PANTOPRAZOLE 40 MG TAB PO SCH (11:31)
[2021-10-14 12:30] VITALS: BP 130/53
[2021-10-14] MEDS ORDERED: VANCOMYCIN 1GM/250ML 250 ML IV ONE (16:00)
[2021-10-14 17:00] VITALS: BP 148/104
[2021-10-14] MEDS ORDERED: MEROPENEM 500MG IVPB 50 ML IV SCH (17:00)
[2021-10-14 18:04] VITALS: BP 109/43
[2021-10-14] MEDS ORDERED: TPN PER PHARMACY IV NR ×7 (20:00)
[2021-10-14] MEDS ORDERED: EPOETIN ALFA-EPBX 10,000 UNIT/1ML VIAL SC ONE (21:00)
[2021-10-14 22:00] VITALS: BP 126/95
[2021-10-14] MEDS: ATORVASTATIN 20 MG TAB PO SCH (22:04)
[2021-10-15] MEDS: HYDROmorphone HCL 2 MG/ML VL IV PRN ×3 (02:19→11:25)
[2021-10-15 05:00] VITALS: BP 102/83
[2021-10-15] MEDS: InsuLIN REG 1unit/0.01ml Soln (100units/ml) SC SCH ×3 (06:00→12:00)
[2021-10-15] MEDS: ACCU-CHEK COMFORT CURVE STRIP VI SCH ×3 (06:13→12:00)
[2021-10-15 09:00] VITALS: BP 111/62
[2021-10-15] MEDS: ASPirin 81 mg TAB PO SCH (09:53)
[2021-10-15] MEDS: CARVEDILOL 3.125 MG TAB PO SCH (09:54)
[2021-10-15] MEDS: SACUBITRIL-VALSARTAN 24mg/26mg TAB PO SCH (09:54)
[2021-10-15] MEDS: CLOPIDOGREL BISULFATE 75 MG TAB PO SCH (09:54)
[2021-10-15] MEDS: NIFEdipine ER 30 MG TAB PO SCH (09:54)
[2021-10-15] MEDS: HYDROCORTONE 1% TOPICAL CREAM 30 GM TUBE TOP SCH (09:55)
[2021-10-15] MEDS: PANTOPRAZOLE 40 MG TAB PO SCH (09:55)
[2021-10-15 13:00] VITALS: BP 132/54
[2021-10-15 15:29] VITALS: BP 132/54
[2021-10-15] MEDS ORDERED: TRAM50TA2 PO (15:33)
== END 2021-10-15 17:08 | disposition home or self-care (01) | DRG 239 ==
LOC: EDBD 04:52 → ER 04:52 → TELE 13:50 → TELE-WESTW 17:20 → TELE-EAST 10-06 14:02 → EAST 10-14 10:48
PROVIDERS: ADMIT Family Medicine; ATTEND Internal Medicine
PROC: 30233N1 Transfusion of Nonautologous Red Blood Cells into Peripheral Vein, Percutaneous Approach (ICD-10-PCS; principal; 2021-10-01)
PROC: 5A1D70Z Performance of Urinary Filtration, Intermittent, Less than 6 Hours Per Day (ICD-10-PCS; 2021-10-02)
PROC: 047L3ZZ Dilation of Left Femoral Artery, Percutaneous Approach (ICD-10-PCS; 2021-10-05)
PROC: 047N3ZZ Dilation of Left Popliteal Artery, Percutaneous Approach (ICD-10-PCS; 2021-10-05)
PROC: 047Q3ZZ Dilation of Left Anterior Tibial Artery, Percutaneous Approach (ICD-10-PCS; 2021-10-05)
PROC: 047U3ZZ Dilation of Left Peroneal Artery, Percutaneous Approach (ICD-10-PCS; 2021-10-05)
PROC: 4A023N7 Measurement of Cardiac Sampling and Pressure, Left Heart, Percutaneous Approach (ICD-10-PCS; 2021-10-05)
PROC: B211YZZ Fluoroscopy of Multiple Coronary Arteries using Other Contrast (ICD-10-PCS; 2021-10-05)
PROC: B215YZZ Fluoroscopy of Left Heart using Other Contrast (ICD-10-PCS; 2021-10-05)
PROC: 5A1D70Z Performance of Urinary Filtration, Intermittent, Less than 6 Hours Per Day (ICD-10-PCS; 2021-10-05)
PROC: 5A1D70Z Performance of Urinary Filtration, Intermittent, Less than 6 Hours Per Day (ICD-10-PCS; 2021-10-07)
PROC: 5A1D70Z Performance of Urinary Filtration, Intermittent, Less than 6 Hours Per Day (ICD-10-PCS; 2021-10-08)
PROC: 5A1D70Z Performance of Urinary Filtration, Intermittent, Less than 6 Hours Per Day (ICD-10-PCS; 2021-10-12)
PROC: 0Y6H0Z1 Detachment at Right Lower Leg, High, Open Approach (ICD-10-PCS; 2021-10-13)
PROC: 5A1D70Z Performance of Urinary Filtration, Intermittent, Less than 6 Hours Per Day (ICD-10-PCS; 2021-10-14)
DX: I13.2 Hypertensive heart and chronic kidney disease with heart failure and with stage 5 chronic kidney disease, or end stage renal disease (principal); I21.A1 Myocardial infarction type 2; N18.6 End stage renal disease; I50.21 Acute systolic (congestive) heart failure; E87.1 Hypo-osmolality and hyponatremia; L03.115 Cellulitis of right lower limb; D68.9 Coagulation defect, unspecified; E44.0 Moderate protein-calorie malnutrition; M86.8X7 Other osteomyelitis, ankle and foot; E11.51 Type 2 diabetes mellitus with diabetic peripheral angiopathy without gangrene; E11.22 Type 2 diabetes mellitus with diabetic chronic kidney disease; D63.1 Anemia in chronic kidney disease; E11.65 Type 2 diabetes mellitus with hyperglycemia; E11.621 Type 2 diabetes mellitus with foot ulcer; A60.02 Herpesviral infection of other male genital organs; E11.69 Type 2 diabetes mellitus with other specified complication; E21.3 Hyperparathyroidism, unspecified; E87.5 Hyperkalemia; F17.210 Nicotine dependence, cigarettes, uncomplicated; I25.10 Atherosclerotic heart disease of native coronary artery without angina pectoris; N47.1 Phimosis; N48.5 Ulcer of penis; F41.9 Anxiety disorder, unspecified; L25.9 Unspecified contact dermatitis, unspecified cause; B86 Scabies; H54.7 Unspecified visual loss; Z68.25 Body mass index [BMI] 25.0-25.9, adult; I25.2 Old myocardial infarction; Z82.49 Family history of ischemic heart disease and other diseases of the circulatory system; Z83.3 Family history of diabetes mellitus; Z95.5 Presence of coronary angioplasty implant and graft; Z99.2 Dependence on renal dialysis; Z88.1 Allergy status to other antibiotic agents; Z88.5 Allergy status to narcotic agent; Z90.49 Acquired absence of other specified parts of digestive tract; Z86.16 Personal history of COVID-19
CPT/HCPCS: 36415; 36430; 37224; 37228; 70450; 71045; 73140; 73700; 80048; 80053; 80202; 82565; 82962; 83735; 83880; 84443; 84484; 85007; 85014; 85018; 85025; 85027; 85610; 85730; 86850; 86900; 86901; 86920; 87040; 87077; 87081; 87186; 87205; 87426; 90935; 93005; 93458; 96374; 96375; 97110; 97162; 97530; 99152; 99153; G0378; J0696; J1815; J2001; J2185; J2250; J2405; J3430; J3490; P9047; Q9967